=== PATIENT | male | born 1930 | race Caucasian/White ===

== ENCOUNTER 2017-04-22 10:58 | Day surgery (SDC) | payer MEDICARE, BC ==
[2017-04-22 11:51] LABS: ADD MAN DIFF? NO
[2017-04-22 11:55] LABS: WHITE BLOOD COUNT 12.6 10^3/ul (4.8-10.8)
[2017-04-22 11:55] LABS: BASOPHILS % 0.2 % (0.0-2.0); EOSINOPHILS # 0.3 10^3/ul (0.0-0.5); EOSINOPHILS % 2.5 % (0.0-7.0); HEMATOCRIT 35.1 % (42.0-52.0); HEMOGLOBIN 11.1 g/dl (14.0-18.0); LYMPHOCYTES # 1.1 10^3/ul (0.8-2.9); LYMPHOCYTES % 8.7 % (15.0-51.0); MEAN CORPUSCULAR HEMOGLOBIN 30.8 pg (29.0-33.0); MEAN CORPUSCULAR HGB CONC 31.6 g/dl (32.0-37.0); MEAN CORPUSCULAR VOLUME 97.5 fl (82.0-101.0); MEAN PLATELET VOLUME 12.1 fl (7.4-10.4); MONOCYTE # 0.9 10^3/ul (0.3-0.9); MONOCYTES % 7.3 % (0.0-11.0); NEUTROPHILS % 79.6 % (39.0-77.0); PLATELET COUNT 316 10^3/UL (140-415); RED CELL DISTRIBUTION WIDTH 17.2 % (11.5-14.5)
[2017-04-22 12:00] LABS: HOLD TRANSMISSIONS 1
[2017-04-22 12:12] LABS: ALANINE AMINOTRANSFERASE 43 IU/L (13-69); ALBUMIN 4.7 g/dl (3.3-4.9); ALBUMIN/GLOBULIN RATIO 1.56; ALKALINE PHOSPHATASE 57 IU/L (42-121); ANION GAP 16 (8-16); ASPARTATE AMINO TRANSFERASE 32 IU/L (15-46); BILIRUBIN,INDIRECT 0.3 mg/dl (0-1.1); BILIRUBIN,TOTAL 0.3 mg/dl (0.2-1.3); CARBON DIOXIDE 28 mmol/L (21-31); CHLORIDE 100 mmol/L (97-110); GLUCOSE 133 mg/dl (70-220); TOTAL PROTEIN 7.7 g/dl (6.1-8.1)
[2017-04-22 12:15] LABS: BLOOD UREA NITROGEN 40 mg/dl (7-20); CALCIUM 10.3 mg/dl (8.4-10.2); CREATININE 4.18 mg/dl (0.61-1.24); POTASSIUM 5.1 mmol/L (3.5-5.1); SODIUM 139 mmol/L (135-144)
[2017-04-22 12:16] LABS: INR 1.09; PARTIAL THROMBOPLASTIN TIME 33.7 Sec (25.0-35.0); PROTIME 14.3 Sec (11.9-14.9); PT RATIO 1.1
[2017-04-22] MEDS ORDERED: LIDOCAINE 1% (MPF) 30 ML INJ (14:41)
[2017-04-22] MEDS ORDERED: GELATIN SIZE 100 SPONGE (14:53)
[2017-04-22] MEDS ORDERED: HEPARIN 1000 UNITS/ML 10 ML INJ (14:53)
[2017-04-22] MEDS ORDERED: THROMBIN 5000 UNIT VIAL (14:53)
[2017-04-22] MEDS ORDERED: ONDANSETRON 4 MG INJ IV (15:00)
[2017-04-22] MEDS ORDERED: METOCLOPRAMIDE 10 MG INJ IV (15:00)
[2017-04-22] MEDS ORDERED: FENTAnyl 50 MCG/ML VIAL IV (15:00)
[2017-04-22] MEDS ORDERED: MEPERIDINE 25 MG INJ IV (15:00)
[2017-04-22] MEDS ORDERED: hydrALAzine 20 MG INJ IV (15:00)
[2017-04-22] MEDS ORDERED: HYDROmorphONE (0.2 MG/ML) 10ML SYG IV (15:00)
[2017-04-22] MEDS ORDERED: LABETALOL HCL 20MG INJ IV (15:00)
[2017-04-22] MEDS ORDERED: DIPHENHYDRAMINE 50 MG INJ IV (15:00)
[2017-04-22] MEDS ORDERED: FENTAnyl 50 MCG/ML VIAL (15:15)
[2017-04-22] MEDS ORDERED: ROPIVACAINE 0.5 % 30 ML VIAL (15:15)
[2017-04-22] MEDS ORDERED: MIDAZOLAM 1 MG/ML 2 ML INJ (15:17)
[2017-04-22] MEDS ORDERED: LIDOCAINE 2%/EPI 30 ML INJ (15:50)
[2017-04-22] MEDS ORDERED: CEFAZOLIN 1 GM INJ (15:50)
[2017-04-22] MEDS: LIDOCAINE 1% (MPF) 30 ML INJ (15:51)
[2017-04-22] MEDS: HEPARIN 1000 UNITS/ML 10 ML INJ (16:02)
[2017-04-22] MEDS: GELATIN SIZE 100 SPONGE (16:04)
[2017-04-22] MEDS: THROMBIN 5000 UNIT VIAL (16:05)
== END 2017-04-22 18:06 | disposition home or self-care (01) ==
LOC: SDS 10:58
DX: Z45.2 Encounter for adjustment and management of vascular access device (principal); N18.6 End stage renal disease; E11.22 Type 2 diabetes mellitus with diabetic chronic kidney disease; I12.0 Hypertensive chronic kidney disease with stage 5 chronic kidney disease or end stage renal disease
CPT/HCPCS: 36830; 80053; 82962; 85025; 85610; 85730

== ENCOUNTER → 2018-04-11 | Outpatient (CLI) | payer MEDICARE, BC | END | disposition home or self-care (01) | LOC: PUL 12:17 | DX: R06.02 Shortness of breath (principal); I50.9 Heart failure, unspecified; E11.8 Type 2 diabetes mellitus with unspecified complications | CPT/HCPCS: 94060; 94664; 94726; 94729 ==

== ENCOUNTER 2018-12-09 12:40 | Inpatient (IN) | payer MEDICARE, BC ==
[2018-12-09] MEDS: METOPROLOL (XL) 50 MG TAB PO ×2 (01:12→18:06)
[2018-12-09] MEDS ORDERED: VANCOMYCIN IV PER PHARMACY XX ×2 (13:00)
[2018-12-09] MEDS ORDERED: ZOLPIDEM 5 MG TAB PO (13:30)
[2018-12-09] MEDS ORDERED: DIAZEPAM 5 MG TAB PO (13:30)
[2018-12-09] MEDS ORDERED: ACETAMINOPHEN 325 MG TAB PO (13:30)
[2018-12-09] MEDS ORDERED: ONDANSETRON 4 MG INJ IV (13:30)
[2018-12-09] MEDS: HYDROCODONE/APAP (5/325) TAB PO (13:50)
[2018-12-09] MEDS ORDERED: NITROGLYCERIN (SL) 0.4 MG TAB SL (14:00)
[2018-12-09] MEDS ORDERED: GLUCOSE GEL 15 GRAM TUBE BUCCAL (14:00)
[2018-12-09] MEDS ORDERED: DEXTROSE 50% 50 ML SYRINGE IV ×2 (14:00)
[2018-12-09] MEDS ORDERED: GLUCOSE GEL 15 GRAM TUBE PO ×2 (14:00)
[2018-12-09] MEDS ORDERED: GLUCAGON 1 MG INJ IM (14:00)
[2018-12-09] MEDS: LIDOCAINE 1% (MDV) 20 ML INJ (16:34)
[2018-12-09] MEDS: INSULIN ASPART [NOVOLOG] 3 ML PEN SC (18:04)
[2018-12-09] MEDS: SEVELAMER CARBONATE 800 MG TABLET PO (18:09)
[2018-12-09 18:28] LABS: FLUID GLUCOSE 179 mg/dl
[2018-12-09 18:29] LABS: FLUID TYPE SYNOVIAL FLUID
[2018-12-09] MEDS ORDERED: INSULIN GLARGINE [LANTus] (100 UNITS/ML) SYG SC (18:30)
[2018-12-09 18:39] LABS: ABNORMAL IP MESSAGE 1; HEMATOCRIT 31.3 % (42.0-52.0); HEMOGLOBIN 9.6 g/dl (14.0-18.0); MEAN CORPUSCULAR HEMOGLOBIN 30.2 pg (29.0-33.0); MEAN CORPUSCULAR HGB CONC 30.7 g/dl (32.0-37.0); MEAN CORPUSCULAR VOLUME 98.4 fl (82.0-101.0); MEAN PLATELET VOLUME 12.3 fl (7.4-10.4); PLATELET COUNT 336 10^3/UL (140-415); POSITIVE DIFF @See below; RED BLOOD COUNT 3.18 10^6/ul (4.70-6.10)
[2018-12-09] MEDS: EPOETIN ALFA-EPBX (ESRD) 10,000 UNIT/ML VIAL SC (18:50)
[2018-12-09 18:58] LABS: ADD MAN DIFF? YES
[2018-12-09 18:59] LABS: IRON 17 ug/dl (35-150)
[2018-12-09 19:01] LABS: ALANINE AMINOTRANSFERASE 51 IU/L (13-69); ALBUMIN 3.8 g/dl (3.3-4.9); ALBUMIN/GLOBULIN RATIO 1.15; ALKALINE PHOSPHATASE 151 IU/L (42-121); ANION GAP 15 (5-13); ASPARTATE AMINO TRANSFERASE 34 IU/L (15-46); BILIRUBIN,INDIRECT 0.4 mg/dl (0-1.1); BILIRUBIN,TOTAL 0.4 mg/dl (0.2-1.3); BLOOD UREA NITROGEN 58 mg/dl (7-20); CALCIUM 9.3 mg/dl (8.4-10.2); CARBON DIOXIDE 27 mmol/L (21-31); CHLORIDE 89 mmol/L (97-110); CREATININE 6.49 mg/dl (0.61-1.24); GLUCOSE 199 mg/dl (70-220); PHOSPHORUS 2.5 mg/dl (2.5-4.9); POTASSIUM 4.3 mmol/L (3.5-5.1); SODIUM 131 mmol/L (135-144); TOTAL PROTEIN 7.1 g/dl (6.1-8.1); URIC ACID 5.6 mg/dl (3.1-7.9)
[2018-12-09 19:09] LABS: % IRON SATURATION 11 % SAT (22-52); TOTAL IRON BINDING CAPACITY 157 ug/dl (241-421)
[2018-12-09 19:31] LABS: HEPATITIS B SURFACE ANTIGEN NEGATIVE (NEGATIVE)
[2018-12-09 19:42] LABS: ANISOCYTOSIS 1+ (0-0); BAND NEUTROPHILS #M 1.7 10^3/ul (0.0-0.6); BAND NEUTROPHILS % (M) 16 % (0-4); BASOPHIL #M 0.4 10^3/ul (0.0-0.0); BASOPHILS % (M) 4 % (0-2); GIANT THROMBO% (M) 1 % (0-0); LYMPHOCYTES #M 0.4 10^3/ul (0.8-2.9); LYMPHOCYTES % (M) 4 % (15-51); MONOCYTE #M 1.7 10^3/ul (0.3-0.9); MONOCYTES % (M) 16 % (0-11); PLATELET ESTIMATE NORMAL; POIKILOCYTOSIS 1+ (0-0); POLYCHROMASIA 2+ (0-0); PROMYELOCYTES #M 0.1 10^3/ul (0-0); PROMYELOCYTES % (M) 1 % (0-0); REACTIVE LYMPHOCYTES #M 0.1 10^3/ul (0.0-0.0); REACTIVE LYMPHOCYTES% (M) 1 % (0-0); SEG NEUT #M 6.6 10^3/ul (1.6-7.5); SEGMENTED NEUTROPHILS (M) % 58 % (39-77); SMUDGE%M 24 % (0-0)
[2018-12-09 19:49] LABS: HEPATITIS B SURFACE ANTIBODY NEGATIVE (NEGATIVE)
[2018-12-09 19:58] LABS: FLD CLARITY HAZY; FLD COLOR YELLOW; FLD MN% 15.9 %; FLD RBC < 2000 /uL
[2018-12-09 19:59] LABS: FLD PMN% 84.1 %
[2018-12-09 20:01] LABS: FLD WBC 352 /cmm
[2018-12-09] MEDS: ATORVASTATIN 20 MG TAB PO (20:52)
[2018-12-09] MEDS: INSULIN GLARGINE [LANTus] (100 UNITS/ML) SYG SC (20:57)
[2018-12-09] MEDS: NACL 0.9% 3 ML SYG IV (20:58)
[2018-12-09 21:53] LABS: FOLATE > 20.0 ng/ml (2.8-20.0)
[2018-12-10] MEDS: VANCOMYCIN 1 GM 250 ML IVPB (01:17)
[2018-12-10] MEDS: ACCU-CHEK XX (02:00)
[2018-12-10 05:18] LABS: WHITE BLOOD COUNT 13.7 10^3/ul (4.8-10.8)
[2018-12-10 05:18] LABS: ABNORMAL IP MESSAGE 1; HEMATOCRIT 31.6 % (42.0-52.0); HEMOGLOBIN 9.7 g/dl (14.0-18.0); MEAN CORPUSCULAR HEMOGLOBIN 30.7 pg (29.0-33.0); MEAN CORPUSCULAR HGB CONC 30.7 g/dl (32.0-37.0); MEAN PLATELET VOLUME 12.4 fl (7.4-10.4); NUCLEATED RED BLOOD CELLS% 0.2 /100WBC (0.0-0.0); PLATELET COUNT 322 10^3/UL (140-415); POSITIVE DIFF @See below; RED BLOOD COUNT 3.16 10^6/ul (4.70-6.10); RED CELL DISTRIBUTION WIDTH 17.9 % (11.5-14.5)
[2018-12-10 05:23] LABS: ADD MAN DIFF? YES
[2018-12-10 05:30] LABS: HEMOGLOBIN A1C 6.6 % (0-5.9)
[2018-12-10 06:03] LABS: ANION GAP 14 (5-13); BLOOD UREA NITROGEN 32 mg/dl (7-20); CALCIUM 8.5 mg/dl (8.4-10.2); CARBON DIOXIDE 30 mmol/L (21-31); CHLORIDE 92 mmol/L (97-110); CREATININE 3.98 mg/dl (0.61-1.24); GLUCOSE 155 mg/dl (70-220); SODIUM 136 mmol/L (135-144)
[2018-12-10 06:03] LABS: PHOSPHORUS 2.7 mg/dl (2.5-4.9)
[2018-12-10] MEDS: LEVOTHYROXINE 75 MCG TAB PO (06:56)
[2018-12-10 08:00] LABS: ANISOCYTOSIS 1+ (0-0); BAND NEUTROPHILS #M 3.1 10^3/ul (0.0-0.6); BAND NEUTROPHILS % (M) 23 % (0-4); GIANT THROMBO% (M) 2 % (0-0); LYMPHOCYTES #M 0.5 10^3/ul (0.8-2.9); LYMPHOCYTES % (M) 4 % (15-51); METAMYELOCYTES #M 0.1 10^3/ul (0.0-0.0); METAMYELOCYTES %M 1 % (0-0); MONOCYTE #M 2.4 10^3/ul (0.3-0.9); MONOCYTES % (M) 18 % (0-11); MYELOCYTES #M 0.2 10^3/ul (0.0-0.0); MYELOCYTES % (M) 2 % (0-0); PLATELET ESTIMATE NORMAL; POIKILOCYTOSIS 1+ (0-0); POLYCHROMASIA 1+ (0-0); SEG NEUT #M 7.5 10^3/ul (1.6-7.5); SEGMENTED NEUTROPHILS (M) % 52 % (39-77); SMUDGE%M 25 % (0-0)
[2018-12-10 08:35] LABS: ERYTHROCYTE SEDIMENTATION RATE 107 mm/Hr (0-20)
[2018-12-10] MEDS: SEVELAMER CARBONATE 800 MG TABLET PO ×3 (08:39→18:15)
[2018-12-10] MEDS: LINAGLIPTIN 5 MG TABLET PO (08:40)
[2018-12-10] MEDS: CLOPIDOGREL 75 MG TAB PO (08:40)
[2018-12-10] MEDS: FOLIC ACID 1 MG TAB PO (08:40)
[2018-12-10] MEDS: METOPROLOL (XL) 50 MG TAB PO ×2 (08:40→21:00)
[2018-12-10] MEDS: CYANOCOBALAMIN 500 MCG TAB PO (08:40)
[2018-12-10] MEDS: CHOLECALCIFEROL 2,000 UNIT CAP PO (08:41)
[2018-12-10] MEDS: AMLODIPINE 2.5 MG TAB PO (08:41)
[2018-12-10] MEDS: MULTIVIT/CA CARB/B CMPLX/FA TAB PO (08:41)
[2018-12-10] MEDS: ISOSORBIDE MONONITRATE(SR)30 MG TAB PO (08:41)
[2018-12-10] MEDS: COLCHICINE 0.6 MG CAP PO (08:42)
[2018-12-10] MEDS: AMIODARONE 200 MG TAB PO (08:43)
[2018-12-10] MEDS: ASPIRIN 81 MG TAB PO (08:44)
[2018-12-10] MEDS: PYRIDOXINE 50 MG TAB PO (08:44)
[2018-12-10] MEDS: INSULIN ASPART [NOVOLOG] 3 ML PEN SC ×3 (08:45→18:21)
[2018-12-10] MEDS ORDERED: ALLOPURINOL 100 MG TAB PO (09:00)
[2018-12-10 11:34] LABS: PROCALCITONIN 1.87 ng/mL (0.00-0.10)
[2018-12-10] MEDS: predniSONE 20 MG TAB PO (18:15)
[2018-12-10] MEDS ORDERED: SPECIAL NON-STANDARD MEDICATION PO (21:00)
[2018-12-10] MEDS: ATORVASTATIN 20 MG TAB PO (21:44)
[2018-12-10] MEDS: JAKAFI 5 MG PO (21:44)
[2018-12-10] MEDS: INSULIN GLARGINE [LANTus] (100 UNITS/ML) SYG SC (21:50)
[2018-12-11] MEDS: ACCU-CHEK XX (02:00)
[2018-12-11 05:34] LABS: WHITE BLOOD COUNT 9.7 10^3/ul (4.8-10.8)
[2018-12-11 05:34] LABS: ABNORMAL IP MESSAGE 1; HEMATOCRIT 26.8 % (42.0-52.0); HEMOGLOBIN 8.2 g/dl (14.0-18.0); MEAN CORPUSCULAR HEMOGLOBIN 29.7 pg (29.0-33.0); MEAN CORPUSCULAR HGB CONC 30.6 g/dl (32.0-37.0); MEAN CORPUSCULAR VOLUME 97.1 fl (82.0-101.0); MEAN PLATELET VOLUME 12.6 fl (7.4-10.4); NUCLEATED RED BLOOD CELLS% 0.2 /100WBC (0.0-0.0); PLATELET COUNT 276 10^3/UL (140-415); POSITIVE DIFF @See below; RED BLOOD COUNT 2.76 10^6/ul (4.70-6.10); RED CELL DISTRIBUTION WIDTH 17.8 % (11.5-14.5)
[2018-12-11 05:51] LABS: ADD MAN DIFF? YES
[2018-12-11] MEDS: LEVOTHYROXINE 75 MCG TAB PO (06:07)
[2018-12-11 06:10] LABS: ALANINE AMINOTRANSFERASE 40 IU/L (13-69); ALKALINE PHOSPHATASE 104 IU/L (42-121); ANION GAP 11 (5-13); ASPARTATE AMINO TRANSFERASE 28 IU/L (15-46); BILIRUBIN,INDIRECT 0.5 mg/dl (0-1.1); BILIRUBIN,TOTAL 0.5 mg/dl (0.2-1.3); BLOOD UREA NITROGEN 59 mg/dl (7-20); CALCIUM 8.1 mg/dl (8.4-10.2); CARBON DIOXIDE 30 mmol/L (21-31); CHLORIDE 88 mmol/L (97-110); CREATININE 5.53 mg/dl (0.61-1.24); GLUCOSE 236 mg/dl (70-220); PHOSPHORUS 3.8 mg/dl (2.5-4.9); POTASSIUM 4.4 mmol/L (3.5-5.1); SODIUM 129 mmol/L (135-144)
[2018-12-11] MEDS: INSULIN ASPART [NOVOLOG] 3 ML PEN SC ×3 (07:20→17:25)
[2018-12-11] MEDS: CLOPIDOGREL 75 MG TAB PO (08:28)
[2018-12-11] MEDS: CHOLECALCIFEROL 2,000 UNIT CAP PO (08:28)
[2018-12-11] MEDS: SEVELAMER CARBONATE 800 MG TABLET PO ×3 (08:28→17:44)
[2018-12-11] MEDS: COLCHICINE 0.6 MG CAP PO (08:28)
[2018-12-11] MEDS: ASPIRIN 81 MG TAB PO (08:28)
[2018-12-11] MEDS: MULTIVIT/CA CARB/B CMPLX/FA TAB PO (08:28)
[2018-12-11] MEDS: LINAGLIPTIN 5 MG TABLET PO (08:29)
[2018-12-11] MEDS: APIXABAN 5 MG TABLET PO ×2 (08:29→22:50)
[2018-12-11] MEDS: FOLIC ACID 1 MG TAB PO (08:29)
[2018-12-11] MEDS: CYANOCOBALAMIN 500 MCG TAB PO (08:29)
[2018-12-11] MEDS: PYRIDOXINE 50 MG TAB PO (08:29)
[2018-12-11] MEDS: predniSONE 20 MG TAB PO (08:29)
[2018-12-11] MEDS: AMIODARONE 200 MG TAB PO (08:30)
[2018-12-11] MEDS: ISOSORBIDE MONONITRATE(SR)30 MG TAB PO (08:30)
[2018-12-11] MEDS: METOPROLOL (XL) 50 MG TAB PO ×2 (08:31→22:50)
[2018-12-11] MEDS: HYDROCODONE/APAP (5/325) TAB PO (08:38)
[2018-12-11 09:42] LABS: ANISOCYTOSIS 2+ (0-0); BAND NEUTROPHILS % (M) 31 % (0-4); GIANT THROMBO% (M) 4 % (0-0); LYMPHOCYTES #M 0.5 10^3/ul (0.8-2.9); LYMPHOCYTES % (M) 6 % (15-51); METAMYELOCYTES %M 1 % (0-0); MONOCYTE #M 0.7 10^3/ul (0.3-0.9); MONOCYTES % (M) 8 % (0-11); MYELOCYTES #M 0.1 10^3/ul (0.0-0.0); MYELOCYTES % (M) 2 % (0-0); PLATELET ESTIMATE NORMAL; POIKILOCYTOSIS 2+ (0-0); POLYCHROMASIA 3+ (0-0); REACTIVE LYMPHOCYTES% (M) 1 % (0-0); SEG NEUT #M 5.2 10^3/ul (1.6-7.5); SEGMENTED NEUTROPHILS (M) % 51 % (39-77); SMUDGE%M 5 % (0-0)
[2018-12-11] MEDS: ATORVASTATIN 20 MG TAB PO (22:50)
[2018-12-11] MEDS: JAKAFI 5 MG PO (22:50)
[2018-12-11] MEDS: INSULIN GLARGINE [LANTus] (100 UNITS/ML) SYG SC (22:52)
[2018-12-12] MEDS: ACCU-CHEK XX (00:52)
[2018-12-12 05:03] LABS: ABNORMAL IP MESSAGE 1; HEMOGLOBIN 8.8 g/dl (14.0-18.0); MEAN CORPUSCULAR HEMOGLOBIN 30.4 pg (29.0-33.0); MEAN CORPUSCULAR HGB CONC 31.4 g/dl (32.0-37.0); MEAN CORPUSCULAR VOLUME 96.9 fl (82.0-101.0); MEAN PLATELET VOLUME 12.6 fl (7.4-10.4); PLATELET COUNT 298 10^3/UL (140-415); POSITIVE DIFF @See below; RED BLOOD COUNT 2.89 10^6/ul (4.70-6.10); RED CELL DISTRIBUTION WIDTH 17.8 % (11.5-14.5)
[2018-12-12 05:03] LABS: WHITE BLOOD COUNT 13.8 10^3/ul (4.8-10.8)
[2018-12-12 05:23] LABS: ADD MAN DIFF? YES
[2018-12-12 05:26] LABS: ALANINE AMINOTRANSFERASE 84 IU/L (13-69); ALBUMIN/GLOBULIN RATIO 0.88; ALKALINE PHOSPHATASE 153 IU/L (42-121); ANION GAP 10 (5-13); ASPARTATE AMINO TRANSFERASE 62 IU/L (15-46); BILIRUBIN,INDIRECT 0.4 mg/dl (0-1.1); BILIRUBIN,TOTAL 0.4 mg/dl (0.2-1.3); BLOOD UREA NITROGEN 43 mg/dl (7-20); CARBON DIOXIDE 33 mmol/L (21-31); CHLORIDE 89 mmol/L (97-110); GLUCOSE 207 mg/dl (70-220); POTASSIUM 4.1 mmol/L (3.5-5.1); SODIUM 132 mmol/L (135-144); TOTAL PROTEIN 6.4 g/dl (6.1-8.1)
[2018-12-12 05:29] LABS: VANCOMYCIN,RANDOM < 5.0 ug/ml
[2018-12-12] MEDS: LEVOTHYROXINE 75 MCG TAB PO (06:29)
[2018-12-12 07:56] LABS: ANISOCYTOSIS 1+ (0-0); BAND NEUTROPHILS #M 1.7 10^3/ul (0.0-0.6); BAND NEUTROPHILS % (M) 13 % (0-4); BURR CELLS 1+ (0-0); GIANT THROMBO% (M) 2 % (0-0); LYMPHOCYTES #M 0.4 10^3/ul (0.8-2.9); LYMPHOCYTES % (M) 3 % (15-51); METAMYELOCYTES #M 0.2 10^3/ul (0.0-0.0); METAMYELOCYTES %M 2 % (0-0); MONOCYTE #M 0.2 10^3/ul (0.3-0.9); MONOCYTES % (M) 2 % (0-11); MYELOCYTES #M 0.2 10^3/ul (0.0-0.0); MYELOCYTES % (M) 2 % (0-0); OVALOCYTES 1+ (0-0); PLATELET ESTIMATE NORMAL; POIKILOCYTOSIS 1+ (0-0); POLYCHROMASIA 1+ (0-0); PROMYELOCYTES #M 0.1 10^3/ul (0-0); PROMYELOCYTES % (M) 1 % (0-0); SEG NEUT #M 10.9 10^3/ul (1.6-7.5); SEGMENTED NEUTROPHILS (M) % 77 % (39-77); SMUDGE%M 1 % (0-0)
[2018-12-12] MEDS: SEVELAMER CARBONATE 800 MG TABLET PO ×3 (08:31→18:09)
[2018-12-12] MEDS: MULTIVIT/CA CARB/B CMPLX/FA TAB PO (08:31)
[2018-12-12] MEDS: CLOPIDOGREL 75 MG TAB PO (08:31)
[2018-12-12] MEDS: ASPIRIN 81 MG TAB PO (08:31)
[2018-12-12] MEDS: FOLIC ACID 1 MG TAB PO (08:32)
[2018-12-12] MEDS: CHOLECALCIFEROL 2,000 UNIT CAP PO (08:32)
[2018-12-12] MEDS: CYANOCOBALAMIN 500 MCG TAB PO (08:32)
[2018-12-12] MEDS: LINAGLIPTIN 5 MG TABLET PO (08:32)
[2018-12-12] MEDS: PYRIDOXINE 50 MG TAB PO (08:32)
[2018-12-12] MEDS: APIXABAN 5 MG TABLET PO (08:32)
[2018-12-12] MEDS: INSULIN ASPART [NOVOLOG] 3 ML PEN SC ×3 (08:33→18:09)
[2018-12-12] MEDS: METOPROLOL (XL) 50 MG TAB PO (09:00)
[2018-12-12] MEDS ORDERED: VANCOMYCIN 1.5 GM/NS 250 ML 250 ML IVPB (09:00)
[2018-12-12] MEDS: AMIODARONE 200 MG TAB PO (09:00)
[2018-12-12] MEDS: ISOSORBIDE MONONITRATE(SR)30 MG TAB PO (09:00)
[2018-12-12] MEDS: SOD FERRIC GLUC COMPLX 125 MG in SOD CHLORIDE 0.9% 100 ML IVPB (12:28)
[2018-12-12] MEDS: HYDROCODONE/APAP (5/325) TAB PO (14:40)
[2018-12-12 23:09] LABS: ADD UMIC YES; UR ASCORBIC ACID NEGATIVE (NEGATIVE); UR BACTERIA FEW /HPF (NONE SEEN); UR BILIRUBIN (Dip) NEGATIVE (NEGATIVE); UR BLOOD (Dip) 1+ mg/dL (NEGATIVE); UR CLARITY SLIGHTLY CLOUDY (CLEAR); UR COLOR AMBER (YELLOW); UR GLUCOSE (Dip) NEGATIVE (NEGATIVE); UR KETONES (Dip) NEGATIVE (NEGATIVE); UR LEUKOCYTE ESTERASE (Dip) NEGATIVE Leu/ul (NEGATIVE); UR NITRITE (Dip) NEGATIVE (NEGATIVE); UR RBC 2 /HPF (0-5); UR SPECIFIC GRAVITY (Dip) 1.017 (1.003-1.030); UR TOTAL PROTEIN (Dip) 1+ mg/dl (NEGATIVE); UR UROBILINOGEN (Dip) NEGATIVE (NEGATIVE); UR WBC 2 /HPF (0-5)
[2018-12-13] MEDS: CEFAZOLIN 2 GM/50 ML (PMX) 50 ML IVPB (00:40)
[2018-12-13] MEDS: ATORVASTATIN 20 MG TAB PO ×2 (00:41→20:34)
[2018-12-13] MEDS: JAKAFI 5 MG PO ×2 (00:41→20:35)
[2018-12-13] MEDS: EPOETIN ALFA-EPBX (ESRD) 10,000 UNIT/ML VIAL SC (00:47)
[2018-12-13] MEDS: METOPROLOL (XL) 50 MG TAB PO ×4 (00:49→20:35)
[2018-12-13] MEDS: ACCU-CHEK XX (00:51)
[2018-12-13] MEDS: INSULIN GLARGINE [LANTus] (100 UNITS/ML) SYG SC ×2 (00:51→20:37)
[2018-12-13 05:05] LABS: ADD MAN DIFF? NO
[2018-12-13 05:08] LABS: ABNORMAL IP MESSAGE 1; BASOPHIL # 0.1 10^3/ul (0.0-0.1); BASOPHILS % 0.9 % (0.0-2.0); EOSINOPHILS # 0.2 10^3/ul (0.0-0.5); HEMATOCRIT 27.6 % (42.0-52.0); HEMOGLOBIN 8.5 g/dl (14.0-18.0); LYMPHOCYTES # 0.4 10^3/ul (0.8-2.9); LYMPHOCYTES % 2.9 % (15.0-51.0); MEAN CORPUSCULAR HEMOGLOBIN 30.2 pg (29.0-33.0); MEAN CORPUSCULAR HGB CONC 30.8 g/dl (32.0-37.0); MEAN CORPUSCULAR VOLUME 98.2 fl (82.0-101.0); MEAN PLATELET VOLUME 12.3 fl (7.4-10.4); MONOCYTE # 1.2 10^3/ul (0.3-0.9); MONOCYTES % 7.9 % (0.0-11.0); NEUTROPHIL # 11.7 10^3/ul (1.6-7.5); NEUTROPHILS % 79.4 % (39.0-77.0); PLATELET COUNT 271 10^3/UL (140-415); POSITIVE DIFF @See below; RED BLOOD COUNT 2.81 10^6/ul (4.70-6.10); RED CELL DISTRIBUTION WIDTH 17.5 % (11.5-14.5)
[2018-12-13 05:08] LABS: WHITE BLOOD COUNT 14.7 10^3/ul (4.8-10.8)
[2018-12-13 05:40] LABS: ANION GAP 9 (5-13); BLOOD UREA NITROGEN 32 mg/dl (7-20); CALCIUM 7.8 mg/dl (8.4-10.2); CARBON DIOXIDE 33 mmol/L (21-31); CHLORIDE 92 mmol/L (97-110); CREATININE 2.53 mg/dl (0.61-1.24); GLUCOSE 145 mg/dl (70-220); PHOSPHORUS 2.3 mg/dl (2.5-4.9); POTASSIUM 3.9 mmol/L (3.5-5.1); SODIUM 134 mmol/L (135-144)
[2018-12-13] MEDS: LEVOTHYROXINE 75 MCG TAB PO (05:59)
[2018-12-13] MEDS: INSULIN ASPART [NOVOLOG] 3 ML PEN SC ×6 (08:35→17:59)
[2018-12-13] MEDS: CHOLECALCIFEROL 2,000 UNIT CAP PO (08:36)
[2018-12-13] MEDS: CYANOCOBALAMIN 500 MCG TAB PO (08:36)
[2018-12-13] MEDS: FOLIC ACID 1 MG TAB PO (08:36)
[2018-12-13] MEDS: AMIODARONE 200 MG TAB PO (08:38)
[2018-12-13] MEDS: ISOSORBIDE MONONITRATE(SR)30 MG TAB PO (08:39)
[2018-12-13] MEDS: MULTIVIT/CA CARB/B CMPLX/FA TAB PO (08:45)
[2018-12-13] MEDS: LINAGLIPTIN 5 MG TABLET PO (08:45)
[2018-12-13] MEDS: PYRIDOXINE 50 MG TAB PO (08:49)
[2018-12-13] MEDS: IOHEXOL 300MG/ML 150 ML BTL ×2 (09:37→20:45)
[2018-12-13 09:55] LABS: ANISOCYTOSIS 1+ (0-0); BAND NEUTROPHILS #M 1.9 10^3/ul (0.0-0.6); BAND NEUTROPHILS % (M) 13 % (0-4); BURR CELLS 1+ (0-0); ERYTHROBLAST% (NRBC) (M) 1 % (0-0); LYMPHOCYTES #M 1.7 10^3/ul (0.8-2.9); LYMPHOCYTES % (M) 12 % (15-51); METAMYELOCYTES #M 0.2 10^3/ul (0.0-0.0); METAMYELOCYTES %M 2 % (0-0); MONOCYTE #M 0.2 10^3/ul (0.3-0.9); MONOCYTES % (M) 2 % (0-11); MYELOCYTES #M 0.5 10^3/ul (0.0-0.0); MYELOCYTES % (M) 4 % (0-0); OVALOCYTES 1+ (0-0); PLATELET ESTIMATE NORMAL; POIKILOCYTOSIS 2+ (0-0); POLYCHROMASIA 2+ (0-0); REACTIVE LYMPHOCYTES #M 0.2 10^3/ul (0.0-0.0); REACTIVE LYMPHOCYTES% (M) 2 % (0-0); SEG NEUT #M 9.8 10^3/ul (1.6-7.5); SEGMENTED NEUTROPHILS (M) % 65 % (39-77)
[2018-12-13] MEDS: SOD FERRIC GLUC COMPLX 125 MG in SOD CHLORIDE 0.9% 100 ML IVPB (12:52)
[2018-12-13] MEDS: HYDROCODONE/APAP (5/325) TAB PO (14:36)
[2018-12-13] MEDS: SEVELAMER CARBONATE 800 MG TABLET PO (17:54)
[2018-12-13] MEDS: SOD CHLORIDE 0.9% 100 ML (20:45)
[2018-12-14] MEDS: ACCU-CHEK XX (01:38)
[2018-12-14 05:27] LABS: ADD MAN DIFF? NO
[2018-12-14 05:36] LABS: WHITE BLOOD COUNT 16.3 10^3/ul (4.8-10.8)
[2018-12-14 05:36] LABS: ABNORMAL IP MESSAGE 1; BASOPHILS % 0.1 % (0.0-2.0); EOSINOPHILS # 0.2 10^3/ul (0.0-0.5); HEMOGLOBIN 8.1 g/dl (14.0-18.0); LYMPHOCYTES # 0.8 10^3/ul (0.8-2.9); LYMPHOCYTES % 4.6 % (15.0-51.0); MEAN CORPUSCULAR HEMOGLOBIN 29.7 pg (29.0-33.0); MEAN CORPUSCULAR VOLUME 98.9 fl (82.0-101.0); MEAN PLATELET VOLUME 12.7 fl (7.4-10.4); MONOCYTES % 6.2 % (0.0-11.0); NEUTROPHIL # 12.2 10^3/ul (1.6-7.5); NEUTROPHILS % 74.5 % (39.0-77.0); PLATELET COUNT 300 10^3/UL (140-415); POSITIVE DIFF @See below; RED BLOOD COUNT 2.73 10^6/ul (4.70-6.10); RED CELL DISTRIBUTION WIDTH 17.8 % (11.5-14.5)
[2018-12-14] MEDS: LEVOTHYROXINE 75 MCG TAB PO (06:21)
[2018-12-14 06:37] LABS: ANION GAP 9 (5-13); BLOOD UREA NITROGEN 53 mg/dl (7-20); CALCIUM 7.9 mg/dl (8.4-10.2); CARBON DIOXIDE 30 mmol/L (21-31); CHLORIDE 91 mmol/L (97-110); CREATININE 4.49 mg/dl (0.61-1.24); GLUCOSE 90 mg/dl (70-220); PHOSPHORUS 2.8 mg/dl (2.5-4.9); POTASSIUM 3.8 mmol/L (3.5-5.1); SODIUM 130 mmol/L (135-144)
[2018-12-14] MEDS: INSULIN ASPART [NOVOLOG] 3 ML PEN SC ×6 (07:20→18:06)
[2018-12-14 07:26] LABS: ANISOCYTOSIS 1+ (0-0); BAND NEUTROPHILS #M 1.6 10^3/ul (0.0-0.6); BAND NEUTROPHILS % (M) 10 % (0-4); BURR CELLS 1+ (0-0); EOSINOPHILS % (M) 1 % (0-7); GIANT THROMBO% (M) 2 % (0-0); HYPOCHROMASIA 1+ (0-0); LYMPHOCYTES #M 0.6 10^3/ul (0.8-2.9); LYMPHOCYTES % (M) 4 % (15-51); METAMYELOCYTES #M 0.4 10^3/ul (0.0-0.0); METAMYELOCYTES %M 3 % (0-0); MONOCYTE #M 1.3 10^3/ul (0.3-0.9); MONOCYTES % (M) 8 % (0-11); MYELOCYTES #M 0.4 10^3/ul (0.0-0.0); MYELOCYTES % (M) 3 % (0-0); OVALOCYTES 1+ (0-0); PLATELET ESTIMATE NORMAL; POIKILOCYTOSIS 1+ (0-0); POLYCHROMASIA 2+ (0-0); SEG NEUT #M 11.8 10^3/ul (1.6-7.5); SEGMENTED NEUTROPHILS (M) % 71 % (39-77); SMUDGE%M 1 % (0-0); TOXIC GRANULATION 2+ (0-0)
[2018-12-14] MEDS: ISOSORBIDE MONONITRATE(SR)30 MG TAB PO (09:00)
[2018-12-14] MEDS: METOPROLOL (XL) 50 MG TAB PO ×2 (09:00→20:52)
[2018-12-14] MEDS: MULTIVIT/CA CARB/B CMPLX/FA TAB PO (09:25)
[2018-12-14] MEDS: FOLIC ACID 1 MG TAB PO (09:26)
[2018-12-14] MEDS: CYANOCOBALAMIN 500 MCG TAB PO (09:26)
[2018-12-14] MEDS: PYRIDOXINE 50 MG TAB PO (09:26)
[2018-12-14] MEDS: CHOLECALCIFEROL 2,000 UNIT CAP PO (09:26)
[2018-12-14] MEDS: AMIODARONE 200 MG TAB PO (09:27)
[2018-12-14] MEDS: LINAGLIPTIN 5 MG TABLET PO (09:27)
[2018-12-14] MEDS: TOBRAMYCIN 0.3% 5 ML OPH LEFT EYE ×4 (12:03→20:52)
[2018-12-14] MEDS: SOD FERRIC GLUC COMPLX 125 MG in SOD CHLORIDE 0.9% 100 ML IVPB (14:18)
[2018-12-14] MEDS: HYDROCODONE/APAP (5/325) TAB PO (15:41)
[2018-12-14] MEDS: CEFAZOLIN 2 GM/50 ML (PMX) 50 ML IVPB (18:09)
[2018-12-14] MEDS: SEVELAMER CARBONATE 800 MG TABLET PO (18:09)
[2018-12-14] MEDS: EPOETIN ALFA-EPBX (ESRD) 10,000 UNIT/ML VIAL SC (19:40)
[2018-12-14] MEDS: ATORVASTATIN 20 MG TAB PO (20:52)
[2018-12-14] MEDS: JAKAFI 5 MG PO (20:56)
[2018-12-14] MEDS: INSULIN GLARGINE [LANTus] (100 UNITS/ML) SYG SC (20:57)
[2018-12-15] MEDS: ACCU-CHEK XX (02:00)
[2018-12-15] MEDS: HYDROCODONE/APAP (5/325) TAB PO (03:16)
[2018-12-15 05:07] LABS: ADD MAN DIFF? NO
[2018-12-15 05:14] LABS: WHITE BLOOD COUNT 16.7 10^3/ul (4.8-10.8)
[2018-12-15 05:14] LABS: ABNORMAL IP MESSAGE 1; BASOPHILS % 0.2 % (0.0-2.0); EOSINOPHILS # 0.1 10^3/ul (0.0-0.5); EOSINOPHILS % 0.8 % (0.0-7.0); HEMATOCRIT 25.4 % (42.0-52.0); HEMOGLOBIN 7.8 g/dl (14.0-18.0); LYMPHOCYTES # 0.7 10^3/ul (0.8-2.9); LYMPHOCYTES % 4.2 % (15.0-51.0); MEAN CORPUSCULAR HEMOGLOBIN 30.7 pg (29.0-33.0); MEAN CORPUSCULAR HGB CONC 30.7 g/dl (32.0-37.0); MEAN PLATELET VOLUME 12.5 fl (7.4-10.4); MONOCYTE # 1.2 10^3/ul (0.3-0.9); NEUTROPHIL # 11.2 10^3/ul (1.6-7.5); NEUTROPHILS % 67.2 % (39.0-77.0); PLATELET COUNT 273 10^3/UL (140-415); POSITIVE DIFF @See below; RED BLOOD COUNT 2.54 10^6/ul (4.70-6.10); RED CELL DISTRIBUTION WIDTH 17.9 % (11.5-14.5)
[2018-12-15 05:30] LABS: ANION GAP 9 (5-13); BLOOD UREA NITROGEN 39 mg/dl (7-20); CARBON DIOXIDE 30 mmol/L (21-31); CHLORIDE 93 mmol/L (97-110); CREATININE 3.97 mg/dl (0.61-1.24); GLUCOSE 134 mg/dl (70-220); POTASSIUM 3.8 mmol/L (3.5-5.1); SODIUM 132 mmol/L (135-144)
[2018-12-15] MEDS: LEVOTHYROXINE 75 MCG TAB PO (06:18)
[2018-12-15 07:18] LABS: ANISOCYTOSIS 1+ (0-0); BAND NEUTROPHILS % (M) 12 % (0-4); GIANT THROMBO% (M) 2 % (0-0); LYMPHOCYTES #M 0.5 10^3/ul (0.8-2.9); LYMPHOCYTES % (M) 3 % (15-51); METAMYELOCYTES #M 0.6 10^3/ul (0.0-0.0); METAMYELOCYTES %M 4 % (0-0); MONOCYTE #M 1.1 10^3/ul (0.3-0.9); MONOCYTES % (M) 7 % (0-11); MYELOCYTES #M 0.8 10^3/ul (0.0-0.0); MYELOCYTES % (M) 5 % (0-0); PLATELET ESTIMATE NORMAL; POIKILOCYTOSIS 1+ (0-0); POLYCHROMASIA 1+ (0-0); PROMYELOCYTES #M 0.6 10^3/ul (0-0); PROMYELOCYTES % (M) 4 % (0-0); REACTIVE LYMPHOCYTES #M 0.6 10^3/ul (0.0-0.0); REACTIVE LYMPHOCYTES% (M) 4 % (0-0); SEG NEUT #M 10.5 10^3/ul (1.6-7.5); SEGMENTED NEUTROPHILS (M) % 61 % (39-77); SMUDGE%M 4 % (0-0)
[2018-12-15] MEDS: INSULIN ASPART [NOVOLOG] 3 ML PEN SC ×6 (07:50→18:00)
[2018-12-15] MEDS: TOBRAMYCIN 0.3% 5 ML OPH LEFT EYE ×4 (09:00→20:59)
[2018-12-15] MEDS: MULTIVIT/CA CARB/B CMPLX/FA TAB PO (09:04)
[2018-12-15] MEDS: PYRIDOXINE 50 MG TAB PO (09:05)
[2018-12-15] MEDS: CYANOCOBALAMIN 500 MCG TAB PO (09:05)
[2018-12-15] MEDS: CHOLECALCIFEROL 2,000 UNIT CAP PO (09:05)
[2018-12-15] MEDS: METOPROLOL (XL) 50 MG TAB PO ×2 (09:05→20:59)
[2018-12-15] MEDS: LINAGLIPTIN 5 MG TABLET PO (09:05)
[2018-12-15] MEDS: FOLIC ACID 1 MG TAB PO (09:05)
[2018-12-15] MEDS: ISOSORBIDE MONONITRATE(SR)30 MG TAB PO (09:05)
[2018-12-15] MEDS: AMIODARONE 200 MG TAB PO (09:06)
[2018-12-15] MEDS: SOD FERRIC GLUC COMPLX 125 MG in SOD CHLORIDE 0.9% 100 ML IVPB (12:42)
[2018-12-15] MEDS: SEVELAMER CARBONATE 800 MG TABLET PO (17:57)
[2018-12-15] MEDS: ATORVASTATIN 20 MG TAB PO (20:59)
[2018-12-15] MEDS: JAKAFI 5 MG PO (21:01)
[2018-12-15] MEDS: INSULIN GLARGINE [LANTus] (100 UNITS/ML) SYG SC (21:02)
[2018-12-16] MEDS: ACCU-CHEK XX (02:00)
[2018-12-16 05:19] LABS: ADD MAN DIFF? NO
[2018-12-16 05:23] LABS: ABNORMAL IP MESSAGE 1; BASOPHILS % 0.2 % (0.0-2.0); EOSINOPHILS # 0.1 10^3/ul (0.0-0.5); EOSINOPHILS % 0.6 % (0.0-7.0); HEMOGLOBIN 7.6 g/dl (14.0-18.0); LYMPHOCYTES # 0.9 10^3/ul (0.8-2.9); LYMPHOCYTES % 4.4 % (15.0-51.0); MEAN CORPUSCULAR HEMOGLOBIN 30.3 pg (29.0-33.0); MEAN CORPUSCULAR HGB CONC 30.4 g/dl (32.0-37.0); MEAN CORPUSCULAR VOLUME 99.6 fl (82.0-101.0); MEAN PLATELET VOLUME 12.4 fl (7.4-10.4); MONOCYTE # 1.3 10^3/ul (0.3-0.9); MONOCYTES % 6.6 % (0.0-11.0); NEUTROPHIL # 11.8 10^3/ul (1.6-7.5); NEUTROPHILS % 61.7 % (39.0-77.0); NUCLEATED RED BLOOD CELLS% 0.1 /100WBC (0.0-0.0); PLATELET COUNT 287 10^3/UL (140-415); POSITIVE DIFF @See below; RED BLOOD COUNT 2.51 10^6/ul (4.70-6.10); RED CELL DISTRIBUTION WIDTH 17.8 % (11.5-14.5)
[2018-12-16 05:23] LABS: WHITE BLOOD COUNT 19.2 10^3/ul (4.8-10.8)
[2018-12-16 05:54] LABS: ANION GAP 11 (5-13); BLOOD UREA NITROGEN 54 mg/dl (7-20); CARBON DIOXIDE 27 mmol/L (21-31); CHLORIDE 90 mmol/L (97-110); GLUCOSE 132 mg/dl (70-220); PHOSPHORUS 3.8 mg/dl (2.5-4.9); POTASSIUM 4.1 mmol/L (3.5-5.1); SODIUM 128 mmol/L (135-144)
[2018-12-16] MEDS: LEVOTHYROXINE 75 MCG TAB PO (07:00)
[2018-12-16] MEDS: INSULIN ASPART [NOVOLOG] 3 ML PEN SC ×6 (07:20→18:08)
[2018-12-16 08:28] LABS: ANISOCYTOSIS 3+ (0-0); BAND NEUTROPHILS #M 2.6 10^3/ul (0.0-0.6); BAND NEUTROPHILS % (M) 14 % (0-4); BURR CELLS 1+ (0-0); EOSINOPHILS % (M) 1 % (0-7); LYMPHOCYTES #M 0.5 10^3/ul (0.8-2.9); LYMPHOCYTES % (M) 3 % (15-51); METAMYELOCYTES #M 1.5 10^3/ul (0.0-0.0); METAMYELOCYTES %M 8 % (0-0); MONOCYTE #M 0.9 10^3/ul (0.3-0.9); MONOCYTES % (M) 5 % (0-11); MYELOCYTES #M 0.9 10^3/ul (0.0-0.0); MYELOCYTES % (M) 5 % (0-0); OVALOCYTES 1+ (0-0); PLATELET ESTIMATE NORMAL; POIKILOCYTOSIS 3+ (0-0); POLYCHROMASIA 3+ (0-0); PROMYELOCYTES #M 0.1 10^3/ul (0-0); PROMYELOCYTES % (M) 1 % (0-0); SEG NEUT #M 12.6 10^3/ul (1.6-7.5); SEGMENTED NEUTROPHILS (M) % 63 % (39-77); SMUDGE%M 8 % (0-0); TOXIC GRANULATION 1+ (0-0)
[2018-12-16] MEDS: AMIODARONE 200 MG TAB PO (09:00)
[2018-12-16] MEDS: FOLIC ACID 1 MG TAB PO (09:00)
[2018-12-16] MEDS: METOPROLOL (XL) 50 MG TAB PO ×2 (09:00→20:37)
[2018-12-16] MEDS: CHOLECALCIFEROL 2,000 UNIT CAP PO (09:00)
[2018-12-16] MEDS: ISOSORBIDE MONONITRATE(SR)30 MG TAB PO (09:00)
[2018-12-16] MEDS: TOBRAMYCIN 0.3% 5 ML OPH LEFT EYE ×4 (09:00→20:36)
[2018-12-16] MEDS: MULTIVIT/CA CARB/B CMPLX/FA TAB PO (09:00)
[2018-12-16] MEDS: PYRIDOXINE 50 MG TAB PO (09:00)
[2018-12-16] MEDS: CYANOCOBALAMIN 500 MCG TAB PO (09:00)
[2018-12-16] MEDS: LINAGLIPTIN 5 MG TABLET PO (09:00)
[2018-12-16] MEDS: DEXTROSE 5% 1,000 ML IV (09:25)
[2018-12-16] MEDS: SOD FERRIC GLUC COMPLX 125 MG in SOD CHLORIDE 0.9% 100 ML IVPB (12:50)
[2018-12-16] MEDS: CEFAZOLIN 1 GM/50 ML (PMX) 50 ML IVPB (17:26)
[2018-12-16] MEDS: SEVELAMER CARBONATE 800 MG TABLET PO (17:26)
[2018-12-16] MEDS: CEFAZOLIN 2 GM/50 ML (PMX) 50 ML IVPB (17:38)
[2018-12-16] MEDS: EPOETIN ALFA-EPBX (ESRD) 10,000 UNIT/ML VIAL SC (17:38)
[2018-12-16] MEDS: ATORVASTATIN 20 MG TAB PO (20:37)
[2018-12-16] MEDS: JAKAFI 5 MG PO (20:39)
[2018-12-16] MEDS: INSULIN GLARGINE [LANTus] (100 UNITS/ML) SYG SC (20:39)
[2018-12-16] MEDS: HYDROCODONE/APAP (5/325) TAB PO (20:41)
[2018-12-17] MEDS: ACCU-CHEK XX (01:28)
[2018-12-17 04:59] LABS: ADD MAN DIFF? NO
[2018-12-17 05:14] LABS: WHITE BLOOD COUNT 20.9 10^3/ul (4.8-10.8)
[2018-12-17 05:14] LABS: ABNORMAL IP MESSAGE 1; BASOPHIL # 0.2 10^3/ul (0.0-0.1); BASOPHILS % 0.8 % (0.0-2.0); EOSINOPHILS # 0.1 10^3/ul (0.0-0.5); EOSINOPHILS % 0.6 % (0.0-7.0); HEMATOCRIT 29.6 % (42.0-52.0); HEMOGLOBIN 8.8 g/dl (14.0-18.0); LYMPHOCYTES # 0.7 10^3/ul (0.8-2.9); LYMPHOCYTES % 3.4 % (15.0-51.0); MEAN CORPUSCULAR HGB CONC 29.7 g/dl (32.0-37.0); MEAN PLATELET VOLUME 12.4 fl (7.4-10.4); MONOCYTE # 1.5 10^3/ul (0.3-0.9); MONOCYTES % 7.1 % (0.0-11.0); NEUTROPHIL # 14.1 10^3/ul (1.6-7.5); NEUTROPHILS % 67.8 % (39.0-77.0); NUCLEATED RED BLOOD CELLS% 0.1 /100WBC (0.0-0.0); PLATELET COUNT 315 10^3/UL (140-415); POSITIVE DIFF @See below; RED BLOOD COUNT 2.93 10^6/ul (4.70-6.10)
[2018-12-17 05:34] LABS: ANION GAP 10 (5-13); BLOOD UREA NITROGEN 36 mg/dl (7-20); CALCIUM 8.3 mg/dl (8.4-10.2); CARBON DIOXIDE 30 mmol/L (21-31); CHLORIDE 94 mmol/L (97-110); GLUCOSE 87 mg/dl (70-220); POTASSIUM 4.3 mmol/L (3.5-5.1); SODIUM 134 mmol/L (135-144)
[2018-12-17] MEDS: LEVOTHYROXINE 75 MCG TAB PO (06:05)
[2018-12-17] MEDS: INSULIN ASPART [NOVOLOG] 3 ML PEN SC ×6 (07:20→17:48)
[2018-12-17] MEDS: MULTIVIT/CA CARB/B CMPLX/FA TAB PO (08:57)
[2018-12-17] MEDS: PYRIDOXINE 50 MG TAB PO (08:57)
[2018-12-17] MEDS: LINAGLIPTIN 5 MG TABLET PO (08:57)
[2018-12-17] MEDS: CYANOCOBALAMIN 500 MCG TAB PO (08:57)
[2018-12-17] MEDS: CHOLECALCIFEROL 2,000 UNIT CAP PO (08:57)
[2018-12-17] MEDS: FOLIC ACID 1 MG TAB PO (08:57)
[2018-12-17] MEDS: AMIODARONE 200 MG TAB PO (08:59)
[2018-12-17] MEDS: TOBRAMYCIN 0.3% 5 ML OPH LEFT EYE ×4 (08:59→21:51)
[2018-12-17] MEDS: ISOSORBIDE MONONITRATE(SR)30 MG TAB PO (08:59)
[2018-12-17] MEDS: METOPROLOL (XL) 50 MG TAB PO ×2 (08:59→21:52)
[2018-12-17 09:44] LABS: ANISOCYTOSIS 1+ (0-0); BAND NEUTROPHILS #M 2.7 10^3/ul (0.0-0.6); BAND NEUTROPHILS % (M) 13 % (0-4); GIANT THROMBO% (M) 1 % (0-0); LYMPHOCYTES #M 0.8 10^3/ul (0.8-2.9); LYMPHOCYTES % (M) 4 % (15-51); METAMYELOCYTES #M 1.2 10^3/ul (0.0-0.0); METAMYELOCYTES %M 6 % (0-0); MONOCYTE #M 0.8 10^3/ul (0.3-0.9); MONOCYTES % (M) 4 % (0-11); OVALOCYTES 1+ (0-0); PLATELET ESTIMATE NORMAL; POIKILOCYTOSIS 1+ (0-0); POLYCHROMASIA 2+ (0-0); SEG NEUT #M 15.8 10^3/ul (1.6-7.5); SEGMENTED NEUTROPHILS (M) % 73 % (39-77); SMUDGE%M 2 % (0-0); TOXIC GRANULATION 1+ (0-0)
[2018-12-17] MEDS: SEVELAMER CARBONATE 800 MG TABLET PO (17:46)
[2018-12-17] MEDS: LIDOCAINE 1% (MDV) 20 ML INJ (19:20)
[2018-12-17] MEDS: NACL 0.9% 3 ML SYG IV (21:50)
[2018-12-17] MEDS: ATORVASTATIN 20 MG TAB PO (21:52)
[2018-12-17] MEDS: JAKAFI 5 MG PO (21:57)
[2018-12-17] MEDS: INSULIN GLARGINE [LANTus] (100 UNITS/ML) SYG SC (21:57)
[2018-12-17] MEDS: DOCUSATE SODIUM 100 MG CAP PO (22:00)
[2018-12-17] MEDS: HYDROCODONE/APAP (5/325) TAB PO (22:00)
[2018-12-18] MEDS: ACCU-CHEK XX (02:00)
[2018-12-18 04:53] LABS: ADD MAN DIFF? NO
[2018-12-18 04:59] LABS: ABNORMAL IP MESSAGE 1; BASOPHIL # 0.2 10^3/ul (0.0-0.1); BASOPHILS % 0.8 % (0.0-2.0); EOSINOPHILS # 0.1 10^3/ul (0.0-0.5); EOSINOPHILS % 0.5 % (0.0-7.0); HEMATOCRIT 25.5 % (42.0-52.0); HEMOGLOBIN 7.6 g/dl (14.0-18.0); LYMPHOCYTES # 0.6 10^3/ul (0.8-2.9); LYMPHOCYTES % 2.9 % (15.0-51.0); MEAN CORPUSCULAR HEMOGLOBIN 30.3 pg (29.0-33.0); MEAN CORPUSCULAR HGB CONC 29.8 g/dl (32.0-37.0); MEAN CORPUSCULAR VOLUME 101.6 fl (82.0-101.0); MEAN PLATELET VOLUME 12.4 fl (7.4-10.4); MONOCYTE # 1.5 10^3/ul (0.3-0.9); MONOCYTES % 7.4 % (0.0-11.0); NEUTROPHIL # 14.6 10^3/ul (1.6-7.5); NEUTROPHILS % 72.7 % (39.0-77.0); NUCLEATED RED BLOOD CELLS% 0.1 /100WBC (0.0-0.0); PLATELET COUNT 285 10^3/UL (140-415); POSITIVE DIFF @See below; RED BLOOD COUNT 2.51 10^6/ul (4.70-6.10); RED CELL DISTRIBUTION WIDTH 17.9 % (11.5-14.5)
[2018-12-18 04:59] LABS: WHITE BLOOD COUNT 20.1 10^3/ul (4.8-10.8)
[2018-12-18] MEDS: LEVOTHYROXINE 75 MCG TAB PO (06:23)
[2018-12-18] MEDS: INSULIN ASPART [NOVOLOG] 3 ML PEN SC ×6 (07:20→17:45)
[2018-12-18 07:42] LABS: ANISOCYTOSIS 1+ (0-0); BAND NEUTROPHILS #M 3.4 10^3/ul (0.0-0.6); BAND NEUTROPHILS % (M) 17 % (0-4); BASOPHIL #M 0.2 10^3/ul (0.0-0.0); BASOPHILS % (M) 1 % (0-2); EOSINOPHILS % (M) 2 % (0-7); METAMYELOCYTES #M 0.6 10^3/ul (0.0-0.0); METAMYELOCYTES %M 3 % (0-0); MONOCYTE #M 0.4 10^3/ul (0.3-0.9); MONOCYTES % (M) 2 % (0-11); MYELOCYTES #M 0.6 10^3/ul (0.0-0.0); MYELOCYTES % (M) 3 % (0-0); OVALOCYTES 1+ (0-0); PLATELET ESTIMATE NORMAL; POIKILOCYTOSIS 1+ (0-0); POLYCHROMASIA 1+ (0-0); SEG NEUT #M 15.2 10^3/ul (1.6-7.5); SEGMENTED NEUTROPHILS (M) % 72 % (39-77); SMUDGE%M 21 % (0-0); TOXIC GRANULATION 1+ (0-0)
[2018-12-18] MEDS: METOPROLOL (XL) 50 MG TAB PO ×2 (08:44→21:56)
[2018-12-18] MEDS: CYANOCOBALAMIN 500 MCG TAB PO (08:44)
[2018-12-18] MEDS: FOLIC ACID 1 MG TAB PO (08:44)
[2018-12-18] MEDS: LINAGLIPTIN 5 MG TABLET PO (08:44)
[2018-12-18] MEDS: CHOLECALCIFEROL 2,000 UNIT CAP PO (08:45)
[2018-12-18] MEDS: MULTIVIT/CA CARB/B CMPLX/FA TAB PO (08:45)
[2018-12-18] MEDS: PYRIDOXINE 50 MG TAB PO (08:45)
[2018-12-18] MEDS: AMIODARONE 200 MG TAB PO (08:45)
[2018-12-18] MEDS: ISOSORBIDE MONONITRATE(SR)30 MG TAB PO (08:45)
[2018-12-18] MEDS: TOBRAMYCIN 0.3% 5 ML OPH LEFT EYE ×4 (08:46→21:54)
[2018-12-18] MEDS: SEVELAMER CARBONATE 800 MG TABLET PO (17:45)
[2018-12-18] MEDS: INSULIN GLARGINE [LANTus] (100 UNITS/ML) SYG SC (21:54)
[2018-12-18] MEDS: JAKAFI 5 MG PO (21:55)
[2018-12-18] MEDS: ATORVASTATIN 20 MG TAB PO (21:56)
[2018-12-18] MEDS: DOCUSATE SODIUM 100 MG CAP PO (23:09)
[2018-12-18] MEDS: HYDROCODONE/APAP (5/325) TAB PO (23:09)
[2018-12-19] MEDS: ACCU-CHEK XX (02:00)
[2018-12-19] MEDS: LEVOTHYROXINE 75 MCG TAB PO (06:48)
[2018-12-19] MEDS: INSULIN ASPART [NOVOLOG] 3 ML PEN SC ×6 (07:20→18:00)
[2018-12-19] MEDS: PYRIDOXINE 50 MG TAB PO (08:31)
[2018-12-19] MEDS: FOLIC ACID 1 MG TAB PO (08:31)
[2018-12-19] MEDS: MULTIVIT/CA CARB/B CMPLX/FA TAB PO (08:31)
[2018-12-19] MEDS: LINAGLIPTIN 5 MG TABLET PO (08:32)
[2018-12-19] MEDS: CYANOCOBALAMIN 500 MCG TAB PO (08:32)
[2018-12-19] MEDS: ISOSORBIDE MONONITRATE(SR)30 MG TAB PO (08:32)
[2018-12-19] MEDS: AMIODARONE 200 MG TAB PO (08:33)
[2018-12-19] MEDS: METOPROLOL (XL) 50 MG TAB PO ×2 (08:34→23:00)
[2018-12-19] MEDS: TOBRAMYCIN 0.3% 5 ML OPH LEFT EYE ×4 (08:35→23:01)
[2018-12-19] MEDS: CHOLECALCIFEROL 2,000 UNIT CAP PO (08:35)
[2018-12-19 08:58] LABS: ABNORMAL IP MESSAGE 1; HEMATOCRIT 25.1 % (42.0-52.0); HEMOGLOBIN 7.6 g/dl (14.0-18.0); MEAN CORPUSCULAR HEMOGLOBIN 30.4 pg (29.0-33.0); MEAN CORPUSCULAR HGB CONC 30.3 g/dl (32.0-37.0); MEAN CORPUSCULAR VOLUME 100.4 fl (82.0-101.0); MEAN PLATELET VOLUME 11.7 fl (7.4-10.4); PLATELET COUNT 256 10^3/UL (140-415); POSITIVE DIFF @See below
[2018-12-19 08:58] LABS: WHITE BLOOD COUNT 21.9 10^3/ul (4.8-10.8)
[2018-12-19 09:03] LABS: ADD MAN DIFF? YES
[2018-12-19 09:16] LABS: ANION GAP 11 (5-13); BLOOD UREA NITROGEN 54 mg/dl (7-20); CALCIUM 8.2 mg/dl (8.4-10.2); CARBON DIOXIDE 28 mmol/L (21-31); CHLORIDE 88 mmol/L (97-110); CREATININE 6.45 mg/dl (0.61-1.24); GLUCOSE 109 mg/dl (70-220); POTASSIUM 4.8 mmol/L (3.5-5.1); SODIUM 127 mmol/L (135-144)
[2018-12-19] MEDS: ALBUMIN HUMAN 25% 100 ML IV (10:26)
[2018-12-19 11:09] LABS: ANISOCYTOSIS 1+ (0-0); BAND NEUTROPHILS #M 2.4 10^3/ul (0.0-0.6); BAND NEUTROPHILS % (M) 11 % (0-4); EOSINOPHILS % (M) 2 % (0-7); GIANT THROMBO% (M) 2 % (0-0); LYMPHOCYTES #M 0.4 10^3/ul (0.8-2.9); LYMPHOCYTES % (M) 2 % (15-51); METAMYELOCYTES #M 0.2 10^3/ul (0.0-0.0); METAMYELOCYTES %M 1 % (0-0); MONOCYTE #M 1.3 10^3/ul (0.3-0.9); MONOCYTES % (M) 6 % (0-11); MYELOCYTES #M 0.4 10^3/ul (0.0-0.0); MYELOCYTES % (M) 2 % (0-0); PLATELET ESTIMATE NORMAL; POIKILOCYTOSIS 1+ (0-0); POLYCHROMASIA 1+ (0-0); SEG NEUT #M 17.2 10^3/ul (1.6-7.5); SEGMENTED NEUTROPHILS (M) % 76 % (39-77)
[2018-12-19] MEDS: SEVELAMER CARBONATE 800 MG TABLET PO (17:51)
[2018-12-19] MEDS: CEFAZOLIN 2 GM/50 ML (PMX) 50 ML IVPB (17:56)
[2018-12-19] MEDS: EPOETIN ALFA-EPBX (ESRD) 10,000 UNIT/ML VIAL SC (17:57)
[2018-12-19 21:42] LABS: C-REACTIVE PROTEIN 6.9 mg/dl (0.0-0.9)
[2018-12-19] MEDS: INSULIN GLARGINE [LANTus] (100 UNITS/ML) SYG SC (22:58)
[2018-12-19] MEDS: BALSAM PERU/CASTOR OIL 60 GM TUBE TOP (22:59)
[2018-12-19] MEDS: ATORVASTATIN 20 MG TAB PO (22:59)
[2018-12-19] MEDS: JAKAFI 5 MG PO (23:01)
[2018-12-19] MEDS: APIXABAN 5 MG TABLET PO (23:04)
[2018-12-20] MEDS: ACCU-CHEK XX (02:00)
[2018-12-20 05:12] LABS: WHITE BLOOD COUNT 18.3 10^3/ul (4.8-10.8)
[2018-12-20 05:12] LABS: ABNORMAL IP MESSAGE 1; HEMATOCRIT 21.9 % (42.0-52.0); MEAN CORPUSCULAR HEMOGLOBIN 30.7 pg (29.0-33.0); MEAN CORPUSCULAR HGB CONC 30.1 g/dl (32.0-37.0); MEAN CORPUSCULAR VOLUME 101.9 fl (82.0-101.0); MEAN PLATELET VOLUME 12.6 fl (7.4-10.4); PLATELET COUNT 228 10^3/UL (140-415); POSITIVE DIFF @See below; RED BLOOD COUNT 2.15 10^6/ul (4.70-6.10); RED CELL DISTRIBUTION WIDTH 18.2 % (11.5-14.5)
[2018-12-20 05:29] LABS: ADD MAN DIFF? YES; HEMOGLOBIN 6.6 g/dl (14.0-18.0)
[2018-12-20 05:39] LABS: ALANINE AMINOTRANSFERASE 10 IU/L (13-69); ALBUMIN/GLOBULIN RATIO 1.07; ALKALINE PHOSPHATASE 252 IU/L (42-121); ANION GAP 10 (5-13); ASPARTATE AMINO TRANSFERASE 28 IU/L (15-46); BILIRUBIN,INDIRECT 0.1 mg/dl (0-1.1); BILIRUBIN,TOTAL 0.1 mg/dl (0.2-1.3); BLOOD UREA NITROGEN 32 mg/dl (7-20); CALCIUM 8.2 mg/dl (8.4-10.2); CARBON DIOXIDE 30 mmol/L (21-31); CHLORIDE 94 mmol/L (97-110); CREATININE 4.59 mg/dl (0.61-1.24); GLUCOSE 170 mg/dl (70-220); SODIUM 134 mmol/L (135-144); TOTAL PROTEIN 5.8 g/dl (6.1-8.1)
[2018-12-20 05:40] LABS: PHOSPHORUS 3.9 mg/dl (2.5-4.9)
[2018-12-20 05:41] LABS: POTASSIUM 3.9 mmol/L (3.5-5.1)
[2018-12-20] MEDS: LEVOTHYROXINE 75 MCG TAB PO (06:25)
[2018-12-20 08:21] LABS: ANISOCYTOSIS 1+ (0-0); BAND NEUTROPHILS #M 2.5 10^3/ul (0.0-0.6); BAND NEUTROPHILS % (M) 14 % (0-4); BASOPHIL #M 0.1 10^3/ul (0.0-0.0); BASOPHILS % (M) 1 % (0-2); EOSINOPHILS % (M) 1 % (0-7); LYMPHOCYTES #M 0.1 10^3/ul (0.8-2.9); LYMPHOCYTES % (M) 1 % (15-51); MONOCYTE #M 0.7 10^3/ul (0.3-0.9); MONOCYTES % (M) 4 % (0-11); MYELOCYTES #M 0.5 10^3/ul (0.0-0.0); MYELOCYTES % (M) 3 % (0-0); PLATELET ESTIMATE NORMAL; POIKILOCYTOSIS 1+ (0-0); POLYCHROMASIA 1+ (0-0); SEG NEUT #M 14.4 10^3/ul (1.6-7.5); SEGMENTED NEUTROPHILS (M) % 76 % (39-77); SMUDGE%M 3 % (0-0)
[2018-12-20] MEDS: DOCUSATE SODIUM 100 MG CAP PO (09:00)
[2018-12-20] MEDS: METOPROLOL (XL) 50 MG TAB PO ×2 (09:13→20:22)
[2018-12-20] MEDS: CHOLECALCIFEROL 2,000 UNIT CAP PO (09:13)
[2018-12-20] MEDS: LINAGLIPTIN 5 MG TABLET PO (09:14)
[2018-12-20] MEDS: APIXABAN 5 MG TABLET PO ×2 (09:14→20:22)
[2018-12-20] MEDS: FOLIC ACID 1 MG TAB PO (09:14)
[2018-12-20] MEDS: CYANOCOBALAMIN 500 MCG TAB PO (09:14)
[2018-12-20] MEDS: AMIODARONE 200 MG TAB PO (09:14)
[2018-12-20] MEDS: ISOSORBIDE MONONITRATE(SR)30 MG TAB PO (09:15)
[2018-12-20] MEDS: PYRIDOXINE 50 MG TAB PO (09:15)
[2018-12-20] MEDS: MULTIVIT/CA CARB/B CMPLX/FA TAB PO (09:15)
[2018-12-20] MEDS: INSULIN ASPART [NOVOLOG] 3 ML PEN SC ×6 (09:22→17:46)
[2018-12-20] MEDS: BALSAM PERU/CASTOR OIL 60 GM TUBE TOP (09:24)
[2018-12-20 11:52] LABS: IMMEDIATE SPIN CROSSMATCH 1 2
[2018-12-20 13:58] LABS: PROCALCITONIN 0.68 ng/mL (0.00-0.10)
[2018-12-20] MEDS: SEVELAMER CARBONATE 800 MG TABLET PO (17:44)
[2018-12-20] MEDS: INSULIN GLARGINE [LANTus] (100 UNITS/ML) SYG SC (20:21)
[2018-12-20] MEDS: JAKAFI 5 MG PO (20:21)
[2018-12-20] MEDS: ATORVASTATIN 20 MG TAB PO (20:21)
[2018-12-20] MEDS: HYDROCODONE/APAP (5/325) TAB PO (21:26)
[2018-12-21] MEDS: ACCU-CHEK XX (01:29)
[2018-12-21 05:17] LABS: ADD MAN DIFF? NO
[2018-12-21 05:22] LABS: WHITE BLOOD COUNT 19.4 10^3/ul (4.8-10.8)
[2018-12-21 05:22] LABS: ABNORMAL IP MESSAGE 1; HEMATOCRIT 29.9 % (42.0-52.0); HEMOGLOBIN 9.1 g/dl (14.0-18.0); MEAN CORPUSCULAR HEMOGLOBIN 30.7 pg (29.0-33.0); MEAN CORPUSCULAR HGB CONC 30.4 g/dl (32.0-37.0); MEAN PLATELET VOLUME 12.6 fl (7.4-10.4); PLATELET COUNT 216 10^3/UL (140-415); POSITIVE DIFF @See below; RED BLOOD COUNT 2.96 10^6/ul (4.70-6.10); RED CELL DISTRIBUTION WIDTH 17.7 % (11.5-14.5)
[2018-12-21 05:48] LABS: C-REACTIVE PROTEIN 4.7 mg/dl (0.0-0.9)
[2018-12-21 05:52] LABS: ANION GAP 7 (5-13); BLOOD UREA NITROGEN 31 mg/dl (7-20); CALCIUM 8.2 mg/dl (8.4-10.2); CARBON DIOXIDE 31 mmol/L (21-31); CHLORIDE 95 mmol/L (97-110); CREATININE 4.15 mg/dl (0.61-1.24); GLUCOSE 109 mg/dl (70-220); PHOSPHORUS 3.5 mg/dl (2.5-4.9); POTASSIUM 3.9 mmol/L (3.5-5.1); SODIUM 133 mmol/L (135-144)
[2018-12-21 06:47] LABS: ERYTHROCYTE SEDIMENTATION RATE 79 mm/Hr (0-20)
[2018-12-21] MEDS: INSULIN ASPART [NOVOLOG] 3 ML PEN SC ×6 (08:48→17:56)
[2018-12-21] MEDS: AMIODARONE 200 MG TAB PO (08:50)
[2018-12-21] MEDS: LEVOTHYROXINE 75 MCG TAB PO (08:50)
[2018-12-21] MEDS: CHOLECALCIFEROL 2,000 UNIT CAP PO (08:50)
[2018-12-21] MEDS: MULTIVIT/CA CARB/B CMPLX/FA TAB PO (08:50)
[2018-12-21] MEDS: FOLIC ACID 1 MG TAB PO (08:51)
[2018-12-21] MEDS: PYRIDOXINE 50 MG TAB PO (08:51)
[2018-12-21] MEDS: APIXABAN 5 MG TABLET PO ×2 (08:51→21:54)
[2018-12-21] MEDS: ISOSORBIDE MONONITRATE(SR)30 MG TAB PO (08:51)
[2018-12-21] MEDS: LINAGLIPTIN 5 MG TABLET PO (08:51)
[2018-12-21] MEDS: METOPROLOL (XL) 50 MG TAB PO ×2 (08:51→21:54)
[2018-12-21] MEDS: DOCUSATE SODIUM 100 MG CAP PO (08:51)
[2018-12-21] MEDS: BALSAM PERU/CASTOR OIL 60 GM TUBE TOP (08:52)
[2018-12-21] MEDS: CYANOCOBALAMIN 500 MCG TAB PO (08:52)
[2018-12-21 09:39] LABS: ANISOCYTOSIS 1+ (0-0); BAND NEUTROPHILS #M 1.5 10^3/ul (0.0-0.6); BAND NEUTROPHILS % (M) 8 % (0-4); HYPOCHROMASIA 1+ (0-0); LYMPHOCYTES #M 0.3 10^3/ul (0.8-2.9); LYMPHOCYTES % (M) 2 % (15-51); METAMYELOCYTES #M 0.3 10^3/ul (0.0-0.0); METAMYELOCYTES %M 2 % (0-0); MICROCYTOSIS 1+ (0-0); MONOCYTE #M 0.5 10^3/ul (0.3-0.9); MONOCYTES % (M) 3 % (0-11); OVALOCYTES 1+ (0-0); PLATELET ESTIMATE NORMAL; POIKILOCYTOSIS 1+ (0-0); POLYCHROMASIA 1+ (0-0); SEG NEUT #M 16.8 10^3/ul (1.6-7.5); SEGMENTED NEUTROPHILS (M) % 85 % (39-77); SMUDGE%M 2 % (0-0)
[2018-12-21] MEDS: LACTULOSE 30ML CUP PO (10:53)
[2018-12-21] MEDS: BISACODYL 10 MG SUPP PR (10:54)
[2018-12-21 11:27] LABS: ADD UMIC YES; UR ASCORBIC ACID NEGATIVE (NEGATIVE); UR BACTERIA FEW /HPF (NONE SEEN); UR BILIRUBIN (Dip) NEGATIVE (NEGATIVE); UR BLOOD (Dip) 3+ mg/dL (NEGATIVE); UR CLARITY SLIGHTLY CLOUDY (CLEAR); UR COLOR AMBER (YELLOW); UR GLUCOSE (Dip) NEGATIVE (NEGATIVE); UR KETONES (Dip) NEGATIVE (NEGATIVE); UR LEUKOCYTE ESTERASE (Dip) 2+ Leu/ul (NEGATIVE); UR NITRITE (Dip) NEGATIVE (NEGATIVE); UR RBC 35 /HPF (0-5); UR SPECIFIC GRAVITY (Dip) 1.015 (1.003-1.030); UR TOTAL PROTEIN (Dip) 1+ mg/dl (NEGATIVE); UR UROBILINOGEN (Dip) NEGATIVE (NEGATIVE); UR WBC 29 /HPF (0-5)
[2018-12-21 11:45] LABS: OCCULT BLOOD STOOL NEGATIVE (NEGATIVE)
[2018-12-21] MEDS: ALBUMIN HUMAN 25% 100 ML IV ×3 (13:55→15:39)
[2018-12-21] MEDS: SEVELAMER CARBONATE 800 MG TABLET PO (17:54)
[2018-12-21] MEDS: CEFAZOLIN 2 GM/50 ML (PMX) 50 ML IVPB (17:54)
[2018-12-21] MEDS: ATORVASTATIN 20 MG TAB PO (21:53)
[2018-12-21] MEDS: INSULIN GLARGINE [LANTus] (100 UNITS/ML) SYG SC (22:04)
[2018-12-21] MEDS: EPOETIN ALFA-EPBX (ESRD) 10,000 UNIT/ML VIAL SC (22:06)
[2018-12-21] MEDS: JAKAFI 5 MG PO (22:09)
[2018-12-22] MEDS: ACCU-CHEK XX (02:00)
[2018-12-22 05:14] LABS: ADD MAN DIFF? NO
[2018-12-22 05:27] LABS: ABNORMAL IP MESSAGE 1; BASOPHIL # 0.1 10^3/ul (0.0-0.1); BASOPHILS % 0.4 % (0.0-2.0); EOSINOPHILS # 0.1 10^3/ul (0.0-0.5); EOSINOPHILS % 0.5 % (0.0-7.0); HEMATOCRIT 30.1 % (42.0-52.0); HEMOGLOBIN 9.2 g/dl (14.0-18.0); LYMPHOCYTES # 0.7 10^3/ul (0.8-2.9); LYMPHOCYTES % 4.2 % (15.0-51.0); MEAN CORPUSCULAR HEMOGLOBIN 30.9 pg (29.0-33.0); MEAN CORPUSCULAR HGB CONC 30.6 g/dl (32.0-37.0); MEAN PLATELET VOLUME 12.7 fl (7.4-10.4); MONOCYTE # 1.1 10^3/ul (0.3-0.9); MONOCYTES % 6.4 % (0.0-11.0); NEUTROPHIL # 13.8 10^3/ul (1.6-7.5); NEUTROPHILS % 81.3 % (39.0-77.0); PLATELET COUNT 183 10^3/UL (140-415); POSITIVE DIFF @See below; RED BLOOD COUNT 2.98 10^6/ul (4.70-6.10); RED CELL DISTRIBUTION WIDTH 17.8 % (11.5-14.5)
[2018-12-22 05:48] LABS: ANION GAP 9 (5-13); BLOOD UREA NITROGEN 22 mg/dl (7-20); CALCIUM 9.2 mg/dl (8.4-10.2); CARBON DIOXIDE 30 mmol/L (21-31); CHLORIDE 97 mmol/L (97-110); CREATININE 3.78 mg/dl (0.61-1.24); GLUCOSE 114 mg/dl (70-220); PHOSPHORUS 3.2 mg/dl (2.5-4.9); SODIUM 136 mmol/L (135-144)
[2018-12-22] MEDS: LEVOTHYROXINE 75 MCG TAB PO (06:58)
[2018-12-22] MEDS: INSULIN ASPART [NOVOLOG] 3 ML PEN SC ×6 (08:26→18:17)
[2018-12-22] MEDS: MULTIVIT/CA CARB/B CMPLX/FA TAB PO (08:27)
[2018-12-22] MEDS: CHOLECALCIFEROL 2,000 UNIT CAP PO (08:30)
[2018-12-22] MEDS: DOCUSATE SODIUM 100 MG CAP PO (08:30)
[2018-12-22] MEDS: AMIODARONE 200 MG TAB PO (08:30)
[2018-12-22] MEDS: ISOSORBIDE MONONITRATE(SR)30 MG TAB PO (08:31)
[2018-12-22] MEDS: APIXABAN 5 MG TABLET PO ×2 (08:31→21:25)
[2018-12-22] MEDS: LINAGLIPTIN 5 MG TABLET PO (08:32)
[2018-12-22] MEDS: FOLIC ACID 1 MG TAB PO (08:32)
[2018-12-22] MEDS: METOPROLOL (XL) 50 MG TAB PO ×2 (08:32→21:25)
[2018-12-22] MEDS: PYRIDOXINE 50 MG TAB PO (08:33)
[2018-12-22] MEDS: CYANOCOBALAMIN 500 MCG TAB PO (08:33)
[2018-12-22] MEDS: BALSAM PERU/CASTOR OIL 60 GM TUBE TOP (08:35)
[2018-12-22 10:52] LABS: ANISOCYTOSIS 1+ (0-0); BAND NEUTROPHILS #M 0.8 10^3/ul (0.0-0.6); BAND NEUTROPHILS % (M) 5 % (0-4); EOSINOPHILS % (M) 1 % (0-7); LYMPHOCYTES #M 0.5 10^3/ul (0.8-2.9); LYMPHOCYTES % (M) 3 % (15-51); METAMYELOCYTES #M 0.1 10^3/ul (0.0-0.0); METAMYELOCYTES %M 1 % (0-0); MONOCYTE #M 1.5 10^3/ul (0.3-0.9); MONOCYTES % (M) 9 % (0-11); MYELOCYTES #M 0.3 10^3/ul (0.0-0.0); MYELOCYTES % (M) 2 % (0-0); OVALOCYTES 1+ (0-0); PLATELET ESTIMATE NORMAL; POIKILOCYTOSIS 1+ (0-0); POLYCHROMASIA 2+ (0-0); SEG NEUT #M 13.6 10^3/ul (1.6-7.5); SEGMENTED NEUTROPHILS (M) % 79 % (39-77); SMUDGE%M 4 % (0-0)
[2018-12-22] MEDS: LACTULOSE 30ML CUP PO (12:51)
[2018-12-22] MEDS: SEVELAMER CARBONATE 800 MG TABLET PO (18:13)
[2018-12-22] MEDS: ATORVASTATIN 20 MG TAB PO (21:23)
[2018-12-22] MEDS: JAKAFI 5 MG PO (21:28)
[2018-12-22] MEDS: INSULIN GLARGINE [LANTus] (100 UNITS/ML) SYG SC (21:29)
[2018-12-23] MEDS: ACCU-CHEK XX (02:00)
[2018-12-23 05:07] LABS: ADD MAN DIFF? NO
[2018-12-23 05:11] LABS: WHITE BLOOD COUNT 15.2 10^3/ul (4.8-10.8)
[2018-12-23 05:11] LABS: ABNORMAL IP MESSAGE 1; BASOPHIL # 0.1 10^3/ul (0.0-0.1); BASOPHILS % 0.5 % (0.0-2.0); EOSINOPHILS # 0.1 10^3/ul (0.0-0.5); EOSINOPHILS % 0.6 % (0.0-7.0); HEMATOCRIT 28.9 % (42.0-52.0); HEMOGLOBIN 8.9 g/dl (14.0-18.0); LYMPHOCYTES # 0.9 10^3/ul (0.8-2.9); LYMPHOCYTES % 6.2 % (15.0-51.0); MEAN CORPUSCULAR HEMOGLOBIN 31.2 pg (29.0-33.0); MEAN CORPUSCULAR HGB CONC 30.8 g/dl (32.0-37.0); MEAN CORPUSCULAR VOLUME 101.4 fl (82.0-101.0); MEAN PLATELET VOLUME 11.9 fl (7.4-10.4); MONOCYTE # 1.1 10^3/ul (0.3-0.9); MONOCYTES % 7.2 % (0.0-11.0); NEUTROPHIL # 12.1 10^3/ul (1.6-7.5); NEUTROPHILS % 79.3 % (39.0-77.0); PLATELET COUNT 173 10^3/UL (140-415); POSITIVE DIFF @See below; RED BLOOD COUNT 2.85 10^6/ul (4.70-6.10); RED CELL DISTRIBUTION WIDTH 17.6 % (11.5-14.5)
[2018-12-23 05:47] LABS: ANION GAP 8 (5-13); BLOOD UREA NITROGEN 37 mg/dl (7-20); CALCIUM 8.7 mg/dl (8.4-10.2); CARBON DIOXIDE 29 mmol/L (21-31); CHLORIDE 93 mmol/L (97-110); CREATININE 5.18 mg/dl (0.61-1.24); GLUCOSE 88 mg/dl (70-220); PHOSPHORUS 3.3 mg/dl (2.5-4.9); POTASSIUM 4.4 mmol/L (3.5-5.1); SODIUM 130 mmol/L (135-144)
[2018-12-23] MEDS: LEVOTHYROXINE 75 MCG TAB PO (06:09)
[2018-12-23] MEDS: INSULIN ASPART [NOVOLOG] 3 ML PEN SC ×6 (08:44→17:38)
[2018-12-23] MEDS: FOLIC ACID 1 MG TAB PO (08:45)
[2018-12-23] MEDS: PYRIDOXINE 50 MG TAB PO (08:45)
[2018-12-23] MEDS: CYANOCOBALAMIN 500 MCG TAB PO (08:45)
[2018-12-23] MEDS: DOCUSATE SODIUM 100 MG CAP PO (08:46)
[2018-12-23] MEDS: LINAGLIPTIN 5 MG TABLET PO (08:49)
[2018-12-23] MEDS: MULTIVIT/CA CARB/B CMPLX/FA TAB PO (08:49)
[2018-12-23] MEDS: CHOLECALCIFEROL 2,000 UNIT CAP PO (08:49)
[2018-12-23] MEDS: AMIODARONE 200 MG TAB PO (08:49)
[2018-12-23] MEDS: LACTULOSE 30ML CUP PO (08:50)
[2018-12-23] MEDS: METOPROLOL (XL) 50 MG TAB PO ×2 (08:50→21:34)
[2018-12-23] MEDS: ISOSORBIDE MONONITRATE(SR)30 MG TAB PO (08:50)
[2018-12-23] MEDS: APIXABAN 5 MG TABLET PO ×2 (08:50→21:34)
[2018-12-23] MEDS: BALSAM PERU/CASTOR OIL 60 GM TUBE TOP (08:51)
[2018-12-23] MEDS: ALBUMIN HUMAN 25% 100 ML IV ×2 (09:08→10:45)
[2018-12-23 09:20] LABS: ANISOCYTOSIS 1+ (0-0); BAND NEUTROPHILS #M 0.9 10^3/ul (0.0-0.6); BAND NEUTROPHILS % (M) 6 % (0-4); EOSINOPHILS % (M) 1 % (0-7); LYMPHOCYTES #M 0.9 10^3/ul (0.8-2.9); LYMPHOCYTES % (M) 6 % (15-51); MONOCYTE #M 0.3 10^3/ul (0.3-0.9); MONOCYTES % (M) 2 % (0-11); PLATELET ESTIMATE NORMAL; POIKILOCYTOSIS 1+ (0-0); POLYCHROMASIA 1+ (0-0); SEG NEUT #M 13.1 10^3/ul (1.6-7.5); SEGMENTED NEUTROPHILS (M) % 85 % (39-77); SMUDGE%M 10 % (0-0)
[2018-12-23] MEDS: POLYETHYLENE GLYCOL 17 GM PACKET PO (09:41)
[2018-12-23] MEDS: L ACIDOPHIL/B LACTIS/B LONGUM CAPSULE PO ×2 (09:41→21:34)
[2018-12-23] MEDS: BISACODYL 10 MG SUPP PR (16:24)
[2018-12-23] MEDS: CEFAZOLIN 1 GM/50 ML (PMX) 50 ML IVPB (16:24)
[2018-12-23] MEDS: SEVELAMER CARBONATE 800 MG TABLET PO (17:27)
[2018-12-23] MEDS: CEFAZOLIN 2 GM/50 ML (PMX) 50 ML IVPB (17:30)
[2018-12-23] MEDS: EPOETIN ALFA-EPBX (ESRD) 10,000 UNIT/ML VIAL SC (17:33)
[2018-12-23] MEDS: ATORVASTATIN 20 MG TAB PO (21:34)
[2018-12-23] MEDS: INSULIN GLARGINE [LANTus] (100 UNITS/ML) SYG SC (21:39)
[2018-12-23] MEDS: JAKAFI 5 MG PO (21:39)
[2018-12-24] MEDS: ACCU-CHEK XX (02:00)
[2018-12-24 05:22] LABS: ADD MAN DIFF? NO
[2018-12-24 05:26] LABS: ABNORMAL IP MESSAGE 1; BASOPHILS % 0.3 % (0.0-2.0); EOSINOPHILS # 0.2 10^3/ul (0.0-0.5); EOSINOPHILS % 1.1 % (0.0-7.0); HEMATOCRIT 31.6 % (42.0-52.0); HEMOGLOBIN 9.6 g/dl (14.0-18.0); LYMPHOCYTES # 0.5 10^3/ul (0.8-2.9); MEAN CORPUSCULAR HEMOGLOBIN 30.5 pg (29.0-33.0); MEAN CORPUSCULAR HGB CONC 30.4 g/dl (32.0-37.0); MEAN CORPUSCULAR VOLUME 100.3 fl (82.0-101.0); MEAN PLATELET VOLUME 12.7 fl (7.4-10.4); MONOCYTE # 1.1 10^3/ul (0.3-0.9); MONOCYTES % 7.4 % (0.0-11.0); NEUTROPHIL # 12.5 10^3/ul (1.6-7.5); NEUTROPHILS % 82.5 % (39.0-77.0); PLATELET COUNT 174 10^3/UL (140-415); POSITIVE DIFF @See below; RED BLOOD COUNT 3.15 10^6/ul (4.70-6.10); RED CELL DISTRIBUTION WIDTH 17.6 % (11.5-14.5)
[2018-12-24 05:26] LABS: WHITE BLOOD COUNT 15.1 10^3/ul (4.8-10.8)
[2018-12-24 06:00] LABS: ANION GAP 13 (5-13); BLOOD UREA NITROGEN 32 mg/dl (7-20); CALCIUM 9.4 mg/dl (8.4-10.2); CARBON DIOXIDE 28 mmol/L (21-31); CHLORIDE 94 mmol/L (97-110); CREATININE 4.35 mg/dl (0.61-1.24); GLUCOSE 131 mg/dl (70-220); POTASSIUM 4.6 mmol/L (3.5-5.1); SODIUM 135 mmol/L (135-144)
[2018-12-24] MEDS: INSULIN ASPART [NOVOLOG] 3 ML PEN SC ×6 (07:20→17:56)
[2018-12-24] MEDS: LEVOTHYROXINE 75 MCG TAB PO (07:42)
[2018-12-24] MEDS: CHOLECALCIFEROL 2,000 UNIT CAP PO (09:10)
[2018-12-24] MEDS: MULTIVIT/CA CARB/B CMPLX/FA TAB PO (09:11)
[2018-12-24] MEDS: CYANOCOBALAMIN 500 MCG TAB PO (09:11)
[2018-12-24] MEDS: METOPROLOL (XL) 50 MG TAB PO ×2 (09:11→20:33)
[2018-12-24] MEDS: FOLIC ACID 1 MG TAB PO (09:12)
[2018-12-24] MEDS: LINAGLIPTIN 5 MG TABLET PO (09:12)
[2018-12-24] MEDS: PYRIDOXINE 50 MG TAB PO (09:12)
[2018-12-24] MEDS: LACTULOSE 30ML CUP PO (09:13)
[2018-12-24] MEDS: ISOSORBIDE MONONITRATE(SR)30 MG TAB PO (09:19)
[2018-12-24] MEDS: L ACIDOPHIL/B LACTIS/B LONGUM CAPSULE PO ×2 (09:19→20:33)
[2018-12-24] MEDS: DOCUSATE SODIUM 100 MG CAP PO (09:20)
[2018-12-24] MEDS: AMIODARONE 200 MG TAB PO (09:21)
[2018-12-24] MEDS: APIXABAN 5 MG TABLET PO ×2 (09:21→20:33)
[2018-12-24] MEDS: POLYETHYLENE GLYCOL 17 GM PACKET PO (09:22)
[2018-12-24] MEDS: BALSAM PERU/CASTOR OIL 60 GM TUBE TOP (09:23)
[2018-12-24 09:25] LABS: ANISOCYTOSIS 1+ (0-0); BAND NEUTROPHILS #M 0.6 10^3/ul (0.0-0.6); BAND NEUTROPHILS % (M) 4 % (0-4); LYMPHOCYTES #M 0.3 10^3/ul (0.8-2.9); LYMPHOCYTES % (M) 2 % (15-51); METAMYELOCYTES #M 0.4 10^3/ul (0.0-0.0); METAMYELOCYTES %M 3 % (0-0); MONOCYTE #M 1.3 10^3/ul (0.3-0.9); MONOCYTES % (M) 9 % (0-11); MYELOCYTES #M 0.1 10^3/ul (0.0-0.0); MYELOCYTES % (M) 1 % (0-0); OVALOCYTES 1+ (0-0); PLATELET ESTIMATE NORMAL; POIKILOCYTOSIS 1+ (0-0); POLYCHROMASIA 1+ (0-0); SEG NEUT #M 12.3 10^3/ul (1.6-7.5); SEGMENTED NEUTROPHILS (M) % 81 % (39-77); SMUDGE%M 6 % (0-0)
[2018-12-24] MEDS ORDERED: SOD CHLORIDE 0.9% 1,000 ML IV (14:52)
[2018-12-24] MEDS ORDERED: ALBUMIN HUMAN 25% 100 ML IV (15:00)
[2018-12-24] MEDS ORDERED: ALBUMIN HUMAN 25% 50 ML IV (15:00)
[2018-12-24] MEDS ORDERED: ALBUMIN HUMAN 5% 250 ML IV (15:00)
[2018-12-24] MEDS ORDERED: HEPARIN 1000 UNITS/ML 10 ML INJ HE ×2 (15:00)
[2018-12-24] MEDS ORDERED: MANNITOL 25% 50 ML IV (15:00)
[2018-12-24 16:29] LABS: ADD MAN DIFF? NO
[2018-12-24 16:31] LABS: WHITE BLOOD COUNT 16.2 10^3/ul (4.8-10.8)
[2018-12-24 16:31] LABS: ABNORMAL IP MESSAGE 1; BASOPHIL # 0.1 10^3/ul (0.0-0.1); BASOPHILS % 0.4 % (0.0-2.0); EOSINOPHILS # 0.1 10^3/ul (0.0-0.5); EOSINOPHILS % 0.5 % (0.0-7.0); HEMATOCRIT 32.3 % (42.0-52.0); HEMOGLOBIN 9.8 g/dl (14.0-18.0); LYMPHOCYTES # 0.5 10^3/ul (0.8-2.9); LYMPHOCYTES % 3.2 % (15.0-51.0); MEAN CORPUSCULAR HEMOGLOBIN 31.1 pg (29.0-33.0); MEAN CORPUSCULAR HGB CONC 30.3 g/dl (32.0-37.0); MEAN CORPUSCULAR VOLUME 102.5 fl (82.0-101.0); MEAN PLATELET VOLUME 12.9 fl (7.4-10.4); MONOCYTE # 1.4 10^3/ul (0.3-0.9); MONOCYTES % 8.7 % (0.0-11.0); NEUTROPHIL # 13.5 10^3/ul (1.6-7.5); NEUTROPHILS % 83.3 % (39.0-77.0); PLATELET COUNT 128 10^3/UL (140-415); POSITIVE DIFF @See below; RED BLOOD COUNT 3.15 10^6/ul (4.70-6.10); RED CELL DISTRIBUTION WIDTH 17.8 % (11.5-14.5)
[2018-12-24] MEDS: PETROLATUM 5 GM OINT TOP (16:49)
[2018-12-24 16:51] LABS: ANION GAP 15 (5-13); BLOOD UREA NITROGEN 39 mg/dl (7-20); CALCIUM 9.3 mg/dl (8.4-10.2); CARBON DIOXIDE 25 mmol/L (21-31); CHLORIDE 94 mmol/L (97-110); CREATININE 4.95 mg/dl (0.61-1.24); GLUCOSE 110 mg/dl (70-220); POTASSIUM 4.5 mmol/L (3.5-5.1); SODIUM 134 mmol/L (135-144)
[2018-12-24 17:21] LABS: HEPATITIS B SURFACE ANTIGEN NEGATIVE (NEGATIVE)
[2018-12-24] MEDS: SEVELAMER CARBONATE 800 MG TABLET PO (17:52)
[2018-12-24] MEDS: ATORVASTATIN 20 MG TAB PO (20:33)
[2018-12-24] MEDS: INSULIN GLARGINE [LANTus] (100 UNITS/ML) SYG SC (20:37)
[2018-12-24] MEDS: JAKAFI 5 MG PO (20:38)
[2018-12-25] MEDS: ACCU-CHEK XX (02:00)
[2018-12-25 05:21] LABS: ADD MAN DIFF? NO
[2018-12-25 05:33] LABS: BASOPHIL # 0.1 10^3/ul (0.0-0.1); BASOPHILS % 0.4 % (0.0-2.0); EOSINOPHILS # 0.2 10^3/ul (0.0-0.5); EOSINOPHILS % 1.1 % (0.0-7.0); HEMATOCRIT 30.9 % (42.0-52.0); HEMOGLOBIN 9.3 g/dl (14.0-18.0); LYMPHOCYTES # 0.9 10^3/ul (0.8-2.9); LYMPHOCYTES % 5.6 % (15.0-51.0); MEAN CORPUSCULAR HEMOGLOBIN 30.6 pg (29.0-33.0); MEAN CORPUSCULAR HGB CONC 30.1 g/dl (32.0-37.0); MEAN CORPUSCULAR VOLUME 101.6 fl (82.0-101.0); MEAN PLATELET VOLUME 11.8 fl (7.4-10.4); MONOCYTE # 1.4 10^3/ul (0.3-0.9); MONOCYTES % 9.1 % (0.0-11.0); NEUTROPHIL # 12.5 10^3/ul (1.6-7.5); PLATELET COUNT 164 10^3/UL (140-415); RED BLOOD COUNT 3.04 10^6/ul (4.70-6.10); RED CELL DISTRIBUTION WIDTH 17.7 % (11.5-14.5)
[2018-12-25 05:33] LABS: WHITE BLOOD COUNT 15.8 10^3/ul (4.8-10.8)
[2018-12-25 06:01] LABS: ALANINE AMINOTRANSFERASE 10 IU/L (13-69); ALBUMIN 3.7 g/dl (3.3-4.9); ALBUMIN/GLOBULIN RATIO 1.19; ALKALINE PHOSPHATASE 175 IU/L (42-121); ANION GAP 14 (5-13); ASPARTATE AMINO TRANSFERASE 22 IU/L (15-46); BILIRUBIN,INDIRECT 0.4 mg/dl (0-1.1); BILIRUBIN,TOTAL 0.4 mg/dl (0.2-1.3); BLOOD UREA NITROGEN 51 mg/dl (7-20); CARBON DIOXIDE 26 mmol/L (21-31); CHLORIDE 92 mmol/L (97-110); CREATININE 5.77 mg/dl (0.61-1.24); GLUCOSE 112 mg/dl (70-220); SODIUM 132 mmol/L (135-144); TOTAL PROTEIN 6.8 g/dl (6.1-8.1)
[2018-12-25] MEDS: LEVOTHYROXINE 75 MCG TAB PO (07:26)
[2018-12-25] MEDS: INSULIN ASPART [NOVOLOG] 3 ML PEN SC ×4 (09:21→13:00)
[2018-12-25] MEDS: FOLIC ACID 1 MG TAB PO (09:25)
[2018-12-25] MEDS: L ACIDOPHIL/B LACTIS/B LONGUM CAPSULE PO (09:25)
[2018-12-25] MEDS: LINAGLIPTIN 5 MG TABLET PO (09:26)
[2018-12-25] MEDS: CHOLECALCIFEROL 2,000 UNIT CAP PO (09:27)
[2018-12-25] MEDS: DOCUSATE SODIUM 100 MG CAP PO (09:27)
[2018-12-25] MEDS: ISOSORBIDE MONONITRATE(SR)30 MG TAB PO (09:28)
[2018-12-25] MEDS: MULTIVIT/CA CARB/B CMPLX/FA TAB PO (09:28)
[2018-12-25] MEDS: AMIODARONE 200 MG TAB PO (09:28)
[2018-12-25] MEDS: CYANOCOBALAMIN 500 MCG TAB PO (09:28)
[2018-12-25] MEDS: PYRIDOXINE 50 MG TAB PO (09:29)
[2018-12-25] MEDS: METOPROLOL (XL) 50 MG TAB PO (09:29)
[2018-12-25] MEDS: APIXABAN 5 MG TABLET PO (09:29)
[2018-12-25] MEDS: POLYETHYLENE GLYCOL 17 GM PACKET PO (09:30)
[2018-12-25] MEDS: LACTULOSE 30ML CUP PO (09:30)
[2018-12-25] MEDS: BALSAM PERU/CASTOR OIL 60 GM TUBE TOP (09:31)
[2018-12-25] MEDS ORDERED: CEFAZOLIN 2 GM/50 ML (PMX) 50 ML IVPB (19:30)
== END 2018-12-25 16:05 | DRG 548 ==
LOC: MS1 12:40
PROC: 0S9D3ZX Drainage of Left Knee Joint, Percutaneous Approach, Diagnostic (ICD-10-PCS; principal; 2018-12-09)
PROC: 5A1D70Z Performance of Urinary Filtration, Intermittent, Less than 6 Hours Per Day (ICD-10-PCS; 2018-12-09)
PROC: 3E0U3KZ Introduction of Other Diagnostic Substance into Joints, Percutaneous Approach (ICD-10-PCS; 2018-12-13)
PROC: BQ0 Imaging, Non-Axial Lower Bones, Plain Radiography (ICD-10-PCS; 2018-12-13)
PROC: 0Y9D30Z Drainage of Left Upper Leg with Drainage Device, Percutaneous Approach (ICD-10-PCS; 2018-12-16)
PROC: 30233N1 Transfusion of Nonautologous Red Blood Cells into Peripheral Vein, Percutaneous Approach (ICD-10-PCS; 2018-12-20)
DX: M00.062 Staphylococcal arthritis, left knee (principal); N18.6 End stage renal disease; D75.81 Myelofibrosis; I50.22 Chronic systolic (congestive) heart failure; I13.0 Hypertensive heart and chronic kidney disease with heart failure and stage 1 through stage 4 chronic kidney disease, or unspecified chronic kidney disease; N25.81 Secondary hyperparathyroidism of renal origin; M60.052 Infective myositis, left thigh; L03.116 Cellulitis of left lower limb; L76.32 Postprocedural hematoma of skin and subcutaneous tissue following other procedure; B95.61 Methicillin susceptible Staphylococcus aureus infection as the cause of diseases classified elsewhere; D63.8 Anemia in other chronic diseases classified elsewhere; E11.22 Type 2 diabetes mellitus with diabetic chronic kidney disease; E11.21 Type 2 diabetes mellitus with diabetic nephropathy; E87.70 Fluid overload, unspecified; E78.5 Hyperlipidemia, unspecified; E03.9 Hypothyroidism, unspecified; I73.9 Peripheral vascular disease, unspecified; I25.10 Atherosclerotic heart disease of native coronary artery without angina pectoris; I48.0 Paroxysmal atrial fibrillation; I25.2 Old myocardial infarction; K59.00 Constipation, unspecified; M48.00 Spinal stenosis, site unspecified; M10.9 Gout, unspecified; M21.372 Foot drop, left foot; M70.42 Prepatellar bursitis, left knee; Y84.1 Kidney dialysis as the cause of abnormal reaction of the patient, or of later complication, without mention of misadventure at the time of the procedure; Z99.2 Dependence on renal dialysis; Z95.1 Presence of aortocoronary bypass graft; Z95.5 Presence of coronary angioplasty implant and graft; Z87.891 Personal history of nicotine dependence; Z79.02 Long term (current) use of antithrombotics/antiplatelets; Z79.82 Long term (current) use of aspirin; Z79.4 Long term (current) use of insulin
CPT/HCPCS: 36430; 71045; 73562; 73580; 73700; 75989; 77012; 80048; 80053; 80202; 81001; 82270; 82607; 82728; 82746; 82945; 82962; 83036; 83540; 84100; 84145; 84443; 84560; 85025; 85651; 86140; 86706; 86850; 86900; 86901; 86920; 87040-91; 87070; 87081; 87086; 87102; 87116; 87340; 88104; 89051; 89060; 90935; 93005; 93306; 93970; 97110; 97116; 97162; 97530

== ENCOUNTER 2018-12-25 16:16 | Inpatient (IN) | payer MEDICARE, BC ==
[2018-12-25] MEDS ORDERED: PENDING SANTYL ORDER FOR WOUND CARE XX (16:30)
[2018-12-25] MEDS ORDERED: BISACODYL 10 MG SUPP PR (17:00)
[2018-12-25] MEDS: CEFAZOLIN 2 GM/50 ML (PMX) 50 ML IVPB ×2 (17:00→18:45)
[2018-12-25] MEDS ORDERED: ONDANSETRON 4 MG INJ IV (17:30)
[2018-12-25] MEDS ORDERED: NITROGLYCERIN (SL) 0.4 MG TAB SL (17:30)
[2018-12-25] MEDS ORDERED: NACL 0.9% 3 ML SYG IV (17:30)
[2018-12-25] MEDS ORDERED: MANNITOL 25% 50 ML INJ IV* (17:30)
[2018-12-25] MEDS ORDERED: DIAZEPAM 5 MG TAB PO (17:30)
[2018-12-25] MEDS ORDERED: HEPARIN 1000 UNITS/ML 10 ML INJ HE (17:30)
[2018-12-25] MEDS ORDERED: HYDROCODONE/APAP (5/325) TAB PO (17:30)
[2018-12-25] MEDS: INSULIN ASPART [NOVOLOG] 3 ML PEN SC ×3 (17:35→21:00)
[2018-12-25] MEDS ORDERED: GLUCAGON 1 MG INJ IM (18:30)
[2018-12-25] MEDS ORDERED: DEXTROSE 50% 50 ML SYRINGE IV ×2 (18:30)
[2018-12-25] MEDS ORDERED: GLUCOSE GEL 15 GRAM TUBE PO ×2 (18:30)
[2018-12-25] MEDS ORDERED: GLUCOSE GEL 15 GRAM TUBE BUCCAL (18:30)
[2018-12-25] MEDS: ALBUMIN HUMAN 25% 50 ML IV (18:40)
[2018-12-25] MEDS ORDERED: MANNITOL 25% 50 ML IV (19:00)
[2018-12-25] MEDS: ACCU-CHEK XX (21:00)
[2018-12-25] MEDS: ATORVASTATIN 20 MG TAB PO (21:59)
[2018-12-25] MEDS: APIXABAN 5 MG TABLET PO (21:59)
[2018-12-25] MEDS: L ACIDOPHIL/B LACTIS/B LONGUM CAPSULE PO (21:59)
[2018-12-25] MEDS: METOPROLOL (XL) 50 MG TAB PO (22:00)
[2018-12-25] MEDS: INSULIN GLARGINE [LANTus] (100 UNITS/ML) SYG SC (22:06)
[2018-12-25] MEDS: SPECIAL NON-STANDARD MEDICATION (CHEMO) PO (22:34)
[2018-12-26] MEDS: ACCU-CHEK XX ×5 (02:00→21:27)
[2018-12-26] MEDS: LEVOTHYROXINE 75 MCG TAB PO (06:48)
[2018-12-26 07:34] LABS: ADD MAN DIFF? NO
[2018-12-26] MEDS: INSULIN ASPART [NOVOLOG] 3 ML PEN SC ×7 (07:46→20:23)
[2018-12-26 07:51] LABS: BASOPHIL # 0.1 10^3/ul (0.0-0.1); BASOPHILS % 0.3 % (0.0-2.0); EOSINOPHILS # 0.2 10^3/ul (0.0-0.5); EOSINOPHILS % 1.1 % (0.0-7.0); HEMATOCRIT 31.9 % (42.0-52.0); HEMOGLOBIN 9.8 g/dl (14.0-18.0); LYMPHOCYTES # 0.9 10^3/ul (0.8-2.9); LYMPHOCYTES % 5.8 % (15.0-51.0); MEAN CORPUSCULAR HEMOGLOBIN 31.1 pg (29.0-33.0); MEAN CORPUSCULAR HGB CONC 30.7 g/dl (32.0-37.0); MEAN CORPUSCULAR VOLUME 101.3 fl (82.0-101.0); MEAN PLATELET VOLUME 12.7 fl (7.4-10.4); MONOCYTE # 1.4 10^3/ul (0.3-0.9); MONOCYTES % 9.3 % (0.0-11.0); NEUTROPHIL # 11.5 10^3/ul (1.6-7.5); PLATELET COUNT 177 10^3/UL (140-415); RED BLOOD COUNT 3.15 10^6/ul (4.70-6.10); RED CELL DISTRIBUTION WIDTH 17.8 % (11.5-14.5)
[2018-12-26 07:51] LABS: WHITE BLOOD COUNT 14.6 10^3/ul (4.8-10.8)
[2018-12-26 08:11] LABS: ALANINE AMINOTRANSFERASE 11 IU/L (13-69); ALBUMIN 4.1 g/dl (3.3-4.9); ALBUMIN/GLOBULIN RATIO 1.24; ALKALINE PHOSPHATASE 179 IU/L (42-121); ANION GAP 12 (5-13); ASPARTATE AMINO TRANSFERASE 22 IU/L (15-46); BILIRUBIN,INDIRECT 0.5 mg/dl (0-1.1); BILIRUBIN,TOTAL 0.5 mg/dl (0.2-1.3); BLOOD UREA NITROGEN 35 mg/dl (7-20); CALCIUM 9.3 mg/dl (8.4-10.2); CARBON DIOXIDE 29 mmol/L (21-31); CHLORIDE 91 mmol/L (97-110); CREATININE 4.53 mg/dl (0.61-1.24); GLUCOSE 121 mg/dl (70-220); SODIUM 132 mmol/L (135-144); TOTAL PROTEIN 7.4 g/dl (6.1-8.1)
[2018-12-26] MEDS: BALSAM PERU/CASTOR OIL 60 GM TUBE TOP (08:16)
[2018-12-26] MEDS: POLYETHYLENE GLYCOL 17 GM PACKET PO (08:16)
[2018-12-26] MEDS: DOCUSATE SODIUM 100 MG CAP PO (08:19)
[2018-12-26] MEDS: ASPIRIN 81 MG TAB PO (08:19)
[2018-12-26] MEDS: MULTIVIT/CA CARB/B CMPLX/FA TAB PO (08:19)
[2018-12-26] MEDS: L ACIDOPHIL/B LACTIS/B LONGUM CAPSULE PO ×2 (08:19→20:20)
[2018-12-26] MEDS: LINAGLIPTIN 5 MG TABLET PO (08:19)
[2018-12-26] MEDS: FOLIC ACID 1 MG TAB PO (08:19)
[2018-12-26] MEDS: CLOPIDOGREL 75 MG TAB PO (08:19)
[2018-12-26] MEDS: PYRIDOXINE 50 MG TAB PO (08:19)
[2018-12-26] MEDS: CHOLECALCIFEROL 2,000 UNIT CAP PO (08:20)
[2018-12-26] MEDS: APIXABAN 5 MG TABLET PO ×2 (08:20→20:21)
[2018-12-26] MEDS: CYANOCOBALAMIN 500 MCG TAB PO (08:20)
[2018-12-26] MEDS: AMIODARONE 200 MG TAB PO (08:26)
[2018-12-26] MEDS: METOPROLOL (XL) 50 MG TAB PO ×2 (08:28→20:22)
[2018-12-26] MEDS: ISOSORBIDE MONONITRATE(SR)30 MG TAB PO (09:00)
[2018-12-26] MEDS: LACTULOSE 30ML CUP PO (13:39)
[2018-12-26] MEDS: EPOETIN ALFA-EPBX (ESRD) 10,000 UNIT/ML VIAL SC (17:30)
[2018-12-26] MEDS: SEVELAMER CARBONATE 800 MG TABLET PO (17:30)
[2018-12-26] MEDS: INSULIN GLARGINE [LANTus] (100 UNITS/ML) SYG SC (20:18)
[2018-12-26] MEDS: SPECIAL NON-STANDARD MEDICATION (CHEMO) PO (20:19)
[2018-12-26] MEDS: ATORVASTATIN 20 MG TAB PO (20:20)
[2018-12-27] MEDS: ACCU-CHEK XX ×5 (02:00→21:32)
[2018-12-27] MEDS: LEVOTHYROXINE 75 MCG TAB PO (06:27)
[2018-12-27 06:47] LABS: ADD MAN DIFF? NO
[2018-12-27 06:51] LABS: WHITE BLOOD COUNT 13.9 10^3/ul (4.8-10.8)
[2018-12-27 06:51] LABS: BASOPHILS % 0.2 % (0.0-2.0); EOSINOPHILS # 0.2 10^3/ul (0.0-0.5); EOSINOPHILS % 1.4 % (0.0-7.0); HEMOGLOBIN 9.9 g/dl (14.0-18.0); LYMPHOCYTES # 1.2 10^3/ul (0.8-2.9); LYMPHOCYTES % 8.4 % (15.0-51.0); MEAN CORPUSCULAR HEMOGLOBIN 31.1 pg (29.0-33.0); MEAN CORPUSCULAR HGB CONC 30.9 g/dl (32.0-37.0); MEAN CORPUSCULAR VOLUME 100.6 fl (82.0-101.0); MONOCYTE # 1.2 10^3/ul (0.3-0.9); MONOCYTES % 8.2 % (0.0-11.0); NEUTROPHIL # 10.9 10^3/ul (1.6-7.5); NEUTROPHILS % 77.9 % (39.0-77.0); PLATELET COUNT 179 10^3/UL (140-415); RED BLOOD COUNT 3.18 10^6/ul (4.70-6.10); RED CELL DISTRIBUTION WIDTH 17.5 % (11.5-14.5)
[2018-12-27 07:30] LABS: ALANINE AMINOTRANSFERASE 10 IU/L (13-69); ALBUMIN 4.2 g/dl (3.3-4.9); ALBUMIN/GLOBULIN RATIO 1.27; ALKALINE PHOSPHATASE 176 IU/L (42-121); ANION GAP 14 (5-13); ASPARTATE AMINO TRANSFERASE 23 IU/L (15-46); BILIRUBIN,INDIRECT 0.4 mg/dl (0-1.1); BILIRUBIN,TOTAL 0.4 mg/dl (0.2-1.3); BLOOD UREA NITROGEN 57 mg/dl (7-20); CALCIUM 9.7 mg/dl (8.4-10.2); CARBON DIOXIDE 27 mmol/L (21-31); CHLORIDE 89 mmol/L (97-110); CREATININE 6.51 mg/dl (0.61-1.24); GLUCOSE 87 mg/dl (70-220); SODIUM 130 mmol/L (135-144); TOTAL PROTEIN 7.5 g/dl (6.1-8.1)
[2018-12-27] MEDS: INSULIN ASPART [NOVOLOG] 3 ML PEN SC ×7 (07:35→20:37)
[2018-12-27 07:41] LABS: POTASSIUM 5.6 mmol/L (3.5-5.1)
[2018-12-27] MEDS: LINAGLIPTIN 5 MG TABLET PO (07:59)
[2018-12-27] MEDS: METOPROLOL (XL) 50 MG TAB PO ×2 (09:00→20:37)
[2018-12-27] MEDS: ASPIRIN 81 MG TAB PO (09:00)
[2018-12-27] MEDS: CYANOCOBALAMIN 500 MCG TAB PO (09:15)
[2018-12-27] MEDS: L ACIDOPHIL/B LACTIS/B LONGUM CAPSULE PO ×2 (09:15→20:33)
[2018-12-27] MEDS: FOLIC ACID 1 MG TAB PO (09:15)
[2018-12-27] MEDS: MULTIVIT/CA CARB/B CMPLX/FA TAB PO (09:15)
[2018-12-27] MEDS: ISOSORBIDE MONONITRATE(SR)30 MG TAB PO (09:15)
[2018-12-27] MEDS: CLOPIDOGREL 75 MG TAB PO (09:15)
[2018-12-27] MEDS: AMIODARONE 200 MG TAB PO (09:16)
[2018-12-27] MEDS: ZINC SULFATE 220 MG CAP PO (09:16)
[2018-12-27] MEDS: DOCUSATE SODIUM 100 MG CAP PO (09:16)
[2018-12-27] MEDS: CHOLECALCIFEROL 2,000 UNIT CAP PO (09:17)
[2018-12-27] MEDS: PYRIDOXINE 50 MG TAB PO (09:17)
[2018-12-27] MEDS: APIXABAN 5 MG TABLET PO ×2 (09:18→20:34)
[2018-12-27] MEDS: POLYETHYLENE GLYCOL 17 GM PACKET PO (09:18)
[2018-12-27] MEDS: BALSAM PERU/CASTOR OIL 60 GM TUBE TOP (09:27)
[2018-12-27] MEDS: LACTULOSE 30ML CUP PO (09:30)
[2018-12-27] MEDS: SEVELAMER CARBONATE 800 MG TABLET PO (17:05)
[2018-12-27] MEDS: SPECIAL NON-STANDARD MEDICATION (CHEMO) PO (20:31)
[2018-12-27] MEDS: INSULIN GLARGINE [LANTus] (100 UNITS/ML) SYG SC (20:32)
[2018-12-27] MEDS: ATORVASTATIN 20 MG TAB PO (20:35)
[2018-12-28] MEDS: ACCU-CHEK XX ×5 (02:00→21:00)
[2018-12-28] MEDS: LEVOTHYROXINE 75 MCG TAB PO (06:14)
[2018-12-28 06:32] LABS: ADD MAN DIFF? NO
[2018-12-28 06:37] LABS: BASOPHILS % 0.3 % (0.0-2.0); EOSINOPHILS # 0.2 10^3/ul (0.0-0.5); EOSINOPHILS % 1.4 % (0.0-7.0); HEMATOCRIT 31.8 % (42.0-52.0); HEMOGLOBIN 9.4 g/dl (14.0-18.0); LYMPHOCYTES # 0.8 10^3/ul (0.8-2.9); LYMPHOCYTES % 7.1 % (15.0-51.0); MEAN CORPUSCULAR HEMOGLOBIN 30.1 pg (29.0-33.0); MEAN CORPUSCULAR HGB CONC 29.6 g/dl (32.0-37.0); MEAN CORPUSCULAR VOLUME 101.9 fl (82.0-101.0); MEAN PLATELET VOLUME 12.6 fl (7.4-10.4); MONOCYTE # 1.1 10^3/ul (0.3-0.9); MONOCYTES % 10.5 % (0.0-11.0); NEUTROPHIL # 8.1 10^3/ul (1.6-7.5); NEUTROPHILS % 77.4 % (39.0-77.0); PLATELET COUNT 192 10^3/UL (140-415); RED BLOOD COUNT 3.12 10^6/ul (4.70-6.10)
[2018-12-28 06:37] LABS: WHITE BLOOD COUNT 10.5 10^3/ul (4.8-10.8)
[2018-12-28 07:07] LABS: ANION GAP 10 (5-13); BLOOD UREA NITROGEN 33 mg/dl (7-20); CALCIUM 9.3 mg/dl (8.4-10.2); CARBON DIOXIDE 31 mmol/L (21-31); CHLORIDE 96 mmol/L (97-110); CREATININE 4.41 mg/dl (0.61-1.24); GLUCOSE 122 mg/dl (70-220); PHOSPHORUS 3.7 mg/dl (2.5-4.9); POTASSIUM 4.7 mmol/L (3.5-5.1); SODIUM 137 mmol/L (135-144)
[2018-12-28] MEDS: INSULIN ASPART [NOVOLOG] 3 ML PEN SC ×7 (07:35→21:00)
[2018-12-28] MEDS: LINAGLIPTIN 5 MG TABLET PO (07:48)
[2018-12-28] MEDS: L ACIDOPHIL/B LACTIS/B LONGUM CAPSULE PO ×2 (08:54→21:05)
[2018-12-28] MEDS: DOCUSATE SODIUM 100 MG CAP PO (08:54)
[2018-12-28] MEDS: ISOSORBIDE MONONITRATE(SR)30 MG TAB PO (08:54)
[2018-12-28] MEDS: POLYETHYLENE GLYCOL 17 GM PACKET PO (08:54)
[2018-12-28] MEDS: MULTIVIT/CA CARB/B CMPLX/FA TAB PO (08:54)
[2018-12-28] MEDS: AMIODARONE 200 MG TAB PO (08:55)
[2018-12-28] MEDS: FOLIC ACID 1 MG TAB PO (08:55)
[2018-12-28] MEDS: CHOLECALCIFEROL 2,000 UNIT CAP PO (08:55)
[2018-12-28] MEDS: METOPROLOL (XL) 50 MG TAB PO ×2 (08:55→21:05)
[2018-12-28] MEDS: ZINC SULFATE 220 MG CAP PO (08:55)
[2018-12-28] MEDS: CLOPIDOGREL 75 MG TAB PO (08:56)
[2018-12-28] MEDS: ASPIRIN 81 MG TAB PO (08:56)
[2018-12-28] MEDS: CYANOCOBALAMIN 500 MCG TAB PO (08:56)
[2018-12-28] MEDS: PYRIDOXINE 50 MG TAB PO (08:56)
[2018-12-28] MEDS: APIXABAN 5 MG TABLET PO ×2 (08:56→21:04)
[2018-12-28] MEDS: CEFAZOLIN 2 GM/50 ML (PMX) 50 ML IVPB (09:00)
[2018-12-28] MEDS: BALSAM PERU/CASTOR OIL 60 GM TUBE TOP (09:06)
[2018-12-28 17:01] LABS: ADD UMIC YES; UR ASCORBIC ACID NEGATIVE (NEGATIVE); UR BACTERIA FEW /HPF (NONE SEEN); UR BILIRUBIN (Dip) NEGATIVE (NEGATIVE); UR BLOOD (Dip) 3+ mg/dL (NEGATIVE); UR CLARITY CLOUDY (CLEAR); UR COLOR AMBER (YELLOW); UR GLUCOSE (Dip) NEGATIVE (NEGATIVE); UR KETONES (Dip) TRACE mg/dL (NEGATIVE); UR LEUKOCYTE ESTERASE (Dip) 2+ Leu/ul (NEGATIVE); UR NITRITE (Dip) NEGATIVE (NEGATIVE); UR RBC 4 /HPF (0-5); UR SPECIFIC GRAVITY (Dip) 1.019 (1.003-1.030); UR TOTAL PROTEIN (Dip) 2+ mg/dl (NEGATIVE); UR UROBILINOGEN (Dip) NEGATIVE (NEGATIVE); UR WBC 18 /HPF (0-5)
[2018-12-28] MEDS: SEVELAMER CARBONATE 800 MG TABLET PO (17:31)
[2018-12-28] MEDS: EPOETIN ALFA-EPBX (ESRD) 10,000 UNIT/ML VIAL SC (17:32)
[2018-12-28] MEDS: ZOLPIDEM 5 MG TAB PO (21:04)
[2018-12-28] MEDS: ATORVASTATIN 20 MG TAB PO (21:05)
[2018-12-28] MEDS: INSULIN GLARGINE [LANTus] (100 UNITS/ML) SYG SC (21:12)
[2018-12-28] MEDS: SPECIAL NON-STANDARD MEDICATION (CHEMO) PO (21:13)
[2018-12-29] MEDS: ACCU-CHEK XX ×5 (02:00→21:34)
[2018-12-29] MEDS: LEVOTHYROXINE 75 MCG TAB PO (06:33)
[2018-12-29] MEDS: INSULIN ASPART [NOVOLOG] 3 ML PEN SC ×7 (07:35→21:00)
[2018-12-29] MEDS: LINAGLIPTIN 5 MG TABLET PO (07:43)
[2018-12-29] MEDS: LACTULOSE 30ML CUP PO (08:27)
[2018-12-29] MEDS: POLYETHYLENE GLYCOL 17 GM PACKET PO (08:27)
[2018-12-29] MEDS: PYRIDOXINE 50 MG TAB PO (08:28)
[2018-12-29] MEDS: ISOSORBIDE MONONITRATE(SR)30 MG TAB PO (08:28)
[2018-12-29] MEDS: METOPROLOL (XL) 50 MG TAB PO (08:28)
[2018-12-29] MEDS: ASPIRIN 81 MG TAB PO (08:29)
[2018-12-29] MEDS: FOLIC ACID 1 MG TAB PO (08:29)
[2018-12-29] MEDS: L ACIDOPHIL/B LACTIS/B LONGUM CAPSULE PO ×2 (08:29→21:32)
[2018-12-29] MEDS: ZINC SULFATE 220 MG CAP PO (08:29)
[2018-12-29] MEDS: MULTIVIT/CA CARB/B CMPLX/FA TAB PO (08:29)
[2018-12-29] MEDS: CYANOCOBALAMIN 500 MCG TAB PO (08:29)
[2018-12-29] MEDS: DOCUSATE SODIUM 100 MG CAP PO (08:29)
[2018-12-29] MEDS: AMIODARONE 200 MG TAB PO (08:29)
[2018-12-29] MEDS: CLOPIDOGREL 75 MG TAB PO (08:30)
[2018-12-29] MEDS: APIXABAN 5 MG TABLET PO ×2 (08:30→21:32)
[2018-12-29] MEDS: CHOLECALCIFEROL 2,000 UNIT CAP PO (08:30)
[2018-12-29] MEDS: BALSAM PERU/CASTOR OIL 60 GM TUBE TOP ×2 (08:35→21:51)
[2018-12-29] MEDS: SEVELAMER CARBONATE 800 MG TABLET PO (17:21)
[2018-12-29] MEDS: ATORVASTATIN 20 MG TAB PO (21:33)
[2018-12-29] MEDS: INSULIN GLARGINE [LANTus] (100 UNITS/ML) SYG SC (21:49)
[2018-12-29] MEDS: SPECIAL NON-STANDARD MEDICATION (CHEMO) PO (21:50)
[2018-12-30] MEDS: METOPROLOL (XL) 50 MG TAB PO ×3 (00:18→20:55)
[2018-12-30] MEDS: ACCU-CHEK XX ×5 (02:00→20:58)
[2018-12-30] MEDS: LEVOTHYROXINE 75 MCG TAB PO (06:30)
[2018-12-30 06:57] LABS: ADD MAN DIFF? NO
[2018-12-30 07:01] LABS: BASOPHILS % 0.2 % (0.0-2.0); EOSINOPHILS # 0.2 10^3/ul (0.0-0.5); EOSINOPHILS % 2.5 % (0.0-7.0); HEMATOCRIT 29.4 % (42.0-52.0); HEMOGLOBIN 8.7 g/dl (14.0-18.0); LYMPHOCYTES # 0.6 10^3/ul (0.8-2.9); LYMPHOCYTES % 6.9 % (15.0-51.0); MEAN CORPUSCULAR HEMOGLOBIN 30.6 pg (29.0-33.0); MEAN CORPUSCULAR HGB CONC 29.6 g/dl (32.0-37.0); MEAN CORPUSCULAR VOLUME 103.5 fl (82.0-101.0); MEAN PLATELET VOLUME 12.1 fl (7.4-10.4); MONOCYTE # 0.8 10^3/ul (0.3-0.9); MONOCYTES % 8.8 % (0.0-11.0); NEUTROPHIL # 7.1 10^3/ul (1.6-7.5); NEUTROPHILS % 78.6 % (39.0-77.0); PLATELET COUNT 206 10^3/UL (140-415); RED BLOOD COUNT 2.84 10^6/ul (4.70-6.10); RED CELL DISTRIBUTION WIDTH 18.1 % (11.5-14.5)
[2018-12-30 07:28] LABS: ANION GAP 10 (5-13); BLOOD UREA NITROGEN 29 mg/dl (7-20); CALCIUM 8.9 mg/dl (8.4-10.2); CARBON DIOXIDE 29 mmol/L (21-31); CHLORIDE 99 mmol/L (97-110); GLUCOSE 113 mg/dl (70-220); PHOSPHORUS 3.6 mg/dl (2.5-4.9); POTASSIUM 4.3 mmol/L (3.5-5.1); SODIUM 138 mmol/L (135-144)
[2018-12-30] MEDS: INSULIN ASPART [NOVOLOG] 3 ML PEN SC ×7 (07:35→20:57)
[2018-12-30] MEDS: LINAGLIPTIN 5 MG TABLET PO (08:16)
[2018-12-30] MEDS: ZINC SULFATE 220 MG CAP PO (08:28)
[2018-12-30] MEDS: FOLIC ACID 1 MG TAB PO (08:28)
[2018-12-30] MEDS: PYRIDOXINE 50 MG TAB PO (08:29)
[2018-12-30] MEDS: CHOLECALCIFEROL 2,000 UNIT CAP PO (08:29)
[2018-12-30] MEDS: L ACIDOPHIL/B LACTIS/B LONGUM CAPSULE PO ×2 (08:30→20:51)
[2018-12-30] MEDS: CYANOCOBALAMIN 500 MCG TAB PO (08:31)
[2018-12-30] MEDS: DOCUSATE SODIUM 100 MG CAP PO (08:31)
[2018-12-30] MEDS: APIXABAN 5 MG TABLET PO ×2 (08:32→20:51)
[2018-12-30] MEDS: MULTIVIT/CA CARB/B CMPLX/FA TAB PO (08:32)
[2018-12-30] MEDS: POLYETHYLENE GLYCOL 17 GM PACKET PO (08:33)
[2018-12-30] MEDS: AMIODARONE 200 MG TAB PO (08:41)
[2018-12-30] MEDS: ISOSORBIDE MONONITRATE(SR)30 MG TAB PO (08:44)
[2018-12-30] MEDS: BALSAM PERU/CASTOR OIL 60 GM TUBE TOP ×2 (08:54→23:02)
[2018-12-30] MEDS: CEFAZOLIN 1 GM/50 ML (PMX) 50 ML IVPB (14:08)
[2018-12-30] MEDS ORDERED: CEFAZOLIN 1 GM/50 ML (PMX) 50 ML IVPB (17:00)
[2018-12-30] MEDS: EPOETIN ALFA-EPBX (ESRD) 10,000 UNIT/ML VIAL SC (17:28)
[2018-12-30] MEDS: SEVELAMER CARBONATE 800 MG TABLET PO (17:30)
[2018-12-30] MEDS: ATORVASTATIN 20 MG TAB PO (20:51)
[2018-12-30] MEDS: ZOLPIDEM 5 MG TAB PO (20:51)
[2018-12-30] MEDS: SPECIAL NON-STANDARD MEDICATION (CHEMO) PO (20:56)
[2018-12-30] MEDS: INSULIN GLARGINE [LANTus] (100 UNITS/ML) SYG SC (20:57)
[2018-12-31] MEDS: ACCU-CHEK XX ×5 (02:00→21:00)
[2018-12-31] MEDS: LEVOTHYROXINE 75 MCG TAB PO (06:17)
[2018-12-31] MEDS: INSULIN ASPART [NOVOLOG] 3 ML PEN SC ×7 (07:35→21:00)
[2018-12-31] MEDS: LINAGLIPTIN 5 MG TABLET PO (08:22)
[2018-12-31] MEDS: CYANOCOBALAMIN 500 MCG TAB PO (08:23)
[2018-12-31] MEDS: MULTIVIT/CA CARB/B CMPLX/FA TAB PO (08:23)
[2018-12-31] MEDS: APIXABAN 5 MG TABLET PO ×2 (08:24→22:32)
[2018-12-31] MEDS: ZINC SULFATE 220 MG CAP PO (08:24)
[2018-12-31] MEDS: L ACIDOPHIL/B LACTIS/B LONGUM CAPSULE PO ×2 (08:24→22:34)
[2018-12-31] MEDS: FOLIC ACID 1 MG TAB PO (08:24)
[2018-12-31] MEDS: PYRIDOXINE 50 MG TAB PO (08:24)
[2018-12-31] MEDS: CHOLECALCIFEROL 2,000 UNIT CAP PO (08:24)
[2018-12-31] MEDS: DOCUSATE SODIUM 100 MG CAP PO (08:24)
[2018-12-31] MEDS: AMIODARONE 200 MG TAB PO (08:25)
[2018-12-31] MEDS: METOPROLOL (XL) 50 MG TAB PO ×2 (08:25→22:34)
[2018-12-31] MEDS: POLYETHYLENE GLYCOL 17 GM PACKET PO (08:26)
[2018-12-31] MEDS: ISOSORBIDE MONONITRATE(SR)30 MG TAB PO (08:26)
[2018-12-31] MEDS: BALSAM PERU/CASTOR OIL 60 GM TUBE TOP ×2 (08:34→22:46)
[2018-12-31] MEDS: SEVELAMER CARBONATE 800 MG TABLET PO (17:20)
[2018-12-31] MEDS: SPECIAL NON-STANDARD MEDICATION (CHEMO) PO (22:31)
[2018-12-31] MEDS: INSULIN GLARGINE [LANTus] (100 UNITS/ML) SYG SC (22:32)
[2018-12-31] MEDS: ATORVASTATIN 20 MG TAB PO (22:34)
[2018-12-31] MEDS: CEFAZOLIN 1 GM/50 ML (PMX) 50 ML IVPB (22:39)
[2019-01-01] MEDS: ACCU-CHEK XX ×5 (02:00→20:39)
[2019-01-01] MEDS: LEVOTHYROXINE 75 MCG TAB PO (06:38)
[2019-01-01] MEDS: INSULIN ASPART [NOVOLOG] 3 ML PEN SC ×7 (07:35→20:39)
[2019-01-01] MEDS: FOLIC ACID 1 MG TAB PO (08:21)
[2019-01-01] MEDS: DOCUSATE SODIUM 100 MG CAP PO (08:21)
[2019-01-01] MEDS: CYANOCOBALAMIN 500 MCG TAB PO (08:21)
[2019-01-01] MEDS: PYRIDOXINE 50 MG TAB PO (08:22)
[2019-01-01] MEDS: LINAGLIPTIN 5 MG TABLET PO (08:22)
[2019-01-01] MEDS: CHOLECALCIFEROL 2,000 UNIT CAP PO (08:22)
[2019-01-01] MEDS: L ACIDOPHIL/B LACTIS/B LONGUM CAPSULE PO ×2 (08:22→20:27)
[2019-01-01] MEDS: MULTIVIT/CA CARB/B CMPLX/FA TAB PO (08:23)
[2019-01-01] MEDS: AMIODARONE 200 MG TAB PO (08:28)
[2019-01-01] MEDS: APIXABAN 5 MG TABLET PO ×2 (08:28→20:27)
[2019-01-01] MEDS: METOPROLOL (XL) 50 MG TAB PO ×2 (08:28→20:28)
[2019-01-01] MEDS: ZINC SULFATE 220 MG CAP PO (08:28)
[2019-01-01] MEDS: ISOSORBIDE MONONITRATE(SR)30 MG TAB PO (08:29)
[2019-01-01] MEDS: POLYETHYLENE GLYCOL 17 GM PACKET PO (08:29)
[2019-01-01] MEDS: BALSAM PERU/CASTOR OIL 60 GM TUBE TOP ×2 (08:30→20:30)
[2019-01-01] MEDS: SEVELAMER CARBONATE 800 MG TABLET PO (17:16)
[2019-01-01] MEDS: CEFAZOLIN 1 GM/50 ML (PMX) 50 ML IVPB (20:24)
[2019-01-01] MEDS: SPECIAL NON-STANDARD MEDICATION (CHEMO) PO (20:26)
[2019-01-01] MEDS: ATORVASTATIN 20 MG TAB PO (20:28)
[2019-01-01] MEDS: INSULIN GLARGINE [LANTus] (100 UNITS/ML) SYG SC (20:39)
[2019-01-02] MEDS: ACCU-CHEK XX ×5 (02:00→20:56)
[2019-01-02] MEDS: LEVOTHYROXINE 75 MCG TAB PO (06:32)
[2019-01-02 07:25] LABS: ADD MAN DIFF? NO
[2019-01-02 07:31] LABS: WHITE BLOOD COUNT 11.2 10^3/ul (4.8-10.8)
[2019-01-02 07:31] LABS: BASOPHILS % 0.3 % (0.0-2.0); EOSINOPHILS # 0.4 10^3/ul (0.0-0.5); EOSINOPHILS % 3.3 % (0.0-7.0); HEMATOCRIT 28.6 % (42.0-52.0); HEMOGLOBIN 8.4 g/dl (14.0-18.0); LYMPHOCYTES # 0.6 10^3/ul (0.8-2.9); LYMPHOCYTES % 5.7 % (15.0-51.0); MEAN CORPUSCULAR HEMOGLOBIN 30.8 pg (29.0-33.0); MEAN CORPUSCULAR HGB CONC 29.4 g/dl (32.0-37.0); MEAN CORPUSCULAR VOLUME 104.8 fl (82.0-101.0); MEAN PLATELET VOLUME 12.2 fl (7.4-10.4); MONOCYTE # 1.2 10^3/ul (0.3-0.9); MONOCYTES % 10.3 % (0.0-11.0); NEUTROPHIL # 8.6 10^3/ul (1.6-7.5); NEUTROPHILS % 76.9 % (39.0-77.0); PLATELET COUNT 232 10^3/UL (140-415); RED BLOOD COUNT 2.73 10^6/ul (4.70-6.10)
[2019-01-02] MEDS: INSULIN ASPART [NOVOLOG] 3 ML PEN SC ×7 (07:35→21:00)
[2019-01-02] MEDS: LINAGLIPTIN 5 MG TABLET PO (07:48)
[2019-01-02 08:00] LABS: ANION GAP 10 (5-13); BLOOD UREA NITROGEN 53 mg/dl (7-20); CARBON DIOXIDE 29 mmol/L (21-31); CHLORIDE 95 mmol/L (97-110); CREATININE 5.63 mg/dl (0.61-1.24); GLUCOSE 110 mg/dl (70-220); SODIUM 134 mmol/L (135-144)
[2019-01-02] MEDS: POLYETHYLENE GLYCOL 17 GM PACKET PO (08:34)
[2019-01-02] MEDS: DOCUSATE SODIUM 100 MG CAP PO (08:34)
[2019-01-02] MEDS: L ACIDOPHIL/B LACTIS/B LONGUM CAPSULE PO ×2 (08:35→20:54)
[2019-01-02] MEDS: MULTIVIT/CA CARB/B CMPLX/FA TAB PO (08:35)
[2019-01-02] MEDS: ZINC SULFATE 220 MG CAP PO (08:35)
[2019-01-02] MEDS: AMIODARONE 200 MG TAB PO (08:35)
[2019-01-02] MEDS: ISOSORBIDE MONONITRATE(SR)30 MG TAB PO (08:35)
[2019-01-02] MEDS: FOLIC ACID 1 MG TAB PO (08:35)
[2019-01-02] MEDS: CYANOCOBALAMIN 500 MCG TAB PO (08:36)
[2019-01-02] MEDS: CHOLECALCIFEROL 2,000 UNIT CAP PO (08:36)
[2019-01-02] MEDS: APIXABAN 5 MG TABLET PO ×2 (08:36→20:54)
[2019-01-02] MEDS: METOPROLOL (XL) 50 MG TAB PO ×2 (08:36→21:00)
[2019-01-02] MEDS: PYRIDOXINE 50 MG TAB PO (08:36)
[2019-01-02] MEDS: BALSAM PERU/CASTOR OIL 60 GM TUBE TOP ×2 (08:37→21:04)
[2019-01-02] MEDS: SEVELAMER CARBONATE 800 MG TABLET PO (17:41)
[2019-01-02] MEDS: EPOETIN ALFA-EPBX (ESRD) 10,000 UNIT/ML VIAL SC (17:42)
[2019-01-02] MEDS: ATORVASTATIN 20 MG TAB PO (20:54)
[2019-01-02] MEDS: INSULIN GLARGINE [LANTus] (100 UNITS/ML) SYG SC (21:00)
[2019-01-02] MEDS: SPECIAL NON-STANDARD MEDICATION (CHEMO) PO (21:00)
[2019-01-03] MEDS: ACCU-CHEK XX ×5 (02:00→21:00)
[2019-01-03] MEDS: ZOLPIDEM 5 MG TAB PO ×2 (02:34→20:36)
[2019-01-03] MEDS: CEFAZOLIN 1 GM/50 ML (PMX) 50 ML IVPB ×2 (02:36→20:32)
[2019-01-03] MEDS: LEVOTHYROXINE 75 MCG TAB PO (05:46)
[2019-01-03] MEDS: INSULIN ASPART [NOVOLOG] 3 ML PEN SC ×7 (07:35→21:30)
[2019-01-03] MEDS: LINAGLIPTIN 5 MG TABLET PO (08:04)
[2019-01-03] MEDS: DOCUSATE SODIUM 100 MG CAP PO (08:40)
[2019-01-03] MEDS: ISOSORBIDE MONONITRATE(SR)30 MG TAB PO (08:41)
[2019-01-03] MEDS: MULTIVIT/CA CARB/B CMPLX/FA TAB PO (08:41)
[2019-01-03] MEDS: FOLIC ACID 1 MG TAB PO (08:41)
[2019-01-03] MEDS: APIXABAN 5 MG TABLET PO ×2 (08:41→20:36)
[2019-01-03] MEDS: ZINC SULFATE 220 MG CAP PO (08:42)
[2019-01-03] MEDS: AMIODARONE 200 MG TAB PO (08:42)
[2019-01-03] MEDS: L ACIDOPHIL/B LACTIS/B LONGUM CAPSULE PO ×2 (08:42→20:35)
[2019-01-03] MEDS: CYANOCOBALAMIN 500 MCG TAB PO (08:42)
[2019-01-03] MEDS: POLYETHYLENE GLYCOL 17 GM PACKET PO (08:43)
[2019-01-03] MEDS: CHOLECALCIFEROL 2,000 UNIT CAP PO (08:43)
[2019-01-03] MEDS: PYRIDOXINE 50 MG TAB PO (08:43)
[2019-01-03] MEDS: METOPROLOL (XL) 50 MG TAB PO ×2 (08:43→20:35)
[2019-01-03] MEDS: BALSAM PERU/CASTOR OIL 60 GM TUBE TOP ×2 (08:44→21:30)
[2019-01-03] MEDS: SEVELAMER CARBONATE 800 MG TABLET PO (17:41)
[2019-01-03] MEDS: ATORVASTATIN 20 MG TAB PO (20:36)
[2019-01-03] MEDS: SPECIAL NON-STANDARD MEDICATION (CHEMO) PO (21:29)
[2019-01-03] MEDS: INSULIN GLARGINE [LANTus] (100 UNITS/ML) SYG SC (21:29)
[2019-01-04] MEDS: ACCU-CHEK XX ×5 (02:00→21:55)
[2019-01-04 06:19] LABS: ADD MAN DIFF? NO
[2019-01-04 06:26] LABS: BASOPHILS % 0.3 % (0.0-2.0); EOSINOPHILS # 0.3 10^3/ul (0.0-0.5); EOSINOPHILS % 3.1 % (0.0-7.0); HEMATOCRIT 26.8 % (42.0-52.0); LYMPHOCYTES # 0.9 10^3/ul (0.8-2.9); LYMPHOCYTES % 10.2 % (15.0-51.0); MEAN CORPUSCULAR HEMOGLOBIN 31.1 pg (29.0-33.0); MEAN CORPUSCULAR HGB CONC 29.9 g/dl (32.0-37.0); MEAN CORPUSCULAR VOLUME 104.3 fl (82.0-101.0); MEAN PLATELET VOLUME 11.3 fl (7.4-10.4); MONOCYTE # 0.8 10^3/ul (0.3-0.9); MONOCYTES % 9.3 % (0.0-11.0); NEUTROPHIL # 6.7 10^3/ul (1.6-7.5); NEUTROPHILS % 74.5 % (39.0-77.0); PLATELET COUNT 236 10^3/UL (140-415); RED BLOOD COUNT 2.57 10^6/ul (4.70-6.10); RED CELL DISTRIBUTION WIDTH 18.8 % (11.5-14.5)
[2019-01-04 06:45] LABS: ANION GAP 11 (5-13); BLOOD UREA NITROGEN 51 mg/dl (7-20); CARBON DIOXIDE 27 mmol/L (21-31); CHLORIDE 95 mmol/L (97-110); CREATININE 5.37 mg/dl (0.61-1.24); GLUCOSE 90 mg/dl (70-220); PHOSPHORUS 3.9 mg/dl (2.5-4.9); POTASSIUM 4.7 mmol/L (3.5-5.1); SODIUM 133 mmol/L (135-144)
[2019-01-04] MEDS: LEVOTHYROXINE 75 MCG TAB PO (06:51)
[2019-01-04] MEDS: INSULIN ASPART [NOVOLOG] 3 ML PEN SC ×7 (07:35→21:54)
[2019-01-04] MEDS: LINAGLIPTIN 5 MG TABLET PO (07:46)
[2019-01-04] MEDS: AMIODARONE 200 MG TAB PO (08:23)
[2019-01-04] MEDS: FOLIC ACID 1 MG TAB PO (08:23)
[2019-01-04] MEDS: APIXABAN 5 MG TABLET PO ×2 (08:24→20:35)
[2019-01-04] MEDS: DOCUSATE SODIUM 100 MG CAP PO (08:24)
[2019-01-04] MEDS: CYANOCOBALAMIN 500 MCG TAB PO (08:24)
[2019-01-04] MEDS: CHOLECALCIFEROL 2,000 UNIT CAP PO (08:25)
[2019-01-04] MEDS: L ACIDOPHIL/B LACTIS/B LONGUM CAPSULE PO ×2 (08:25→20:35)
[2019-01-04] MEDS: MULTIVIT/CA CARB/B CMPLX/FA TAB PO (08:25)
[2019-01-04] MEDS: ZINC SULFATE 220 MG CAP PO (08:25)
[2019-01-04] MEDS: PYRIDOXINE 50 MG TAB PO (08:25)
[2019-01-04] MEDS: ISOSORBIDE MONONITRATE(SR)30 MG TAB PO (08:25)
[2019-01-04] MEDS: BALSAM PERU/CASTOR OIL 60 GM TUBE TOP ×2 (08:26→22:35)
[2019-01-04] MEDS: METOPROLOL (XL) 50 MG TAB PO ×2 (08:26→21:40)
[2019-01-04 13:31] LABS: HAAIG REFLEX REFLEX FILED
[2019-01-04 14:09] LABS: HEPATITIS B SURFACE ANTIGEN NEGATIVE (NEGATIVE)
[2019-01-04 14:27] LABS: HEPATITIS B CORE ANTIBODY NEGATIVE (NEGATIVE); HEPATITIS C VIRAL ANTIBODY NEGATIVE (NEGATIVE)
[2019-01-04] MEDS: ALBUMIN HUMAN 25% 100 ML IV (15:39)
[2019-01-04] MEDS: SEVELAMER CARBONATE 800 MG TABLET PO (17:43)
[2019-01-04] MEDS: EPOETIN ALFA-EPBX (ESRD) 10,000 UNIT/ML VIAL SC (17:48)
[2019-01-04] MEDS: CEFAZOLIN 1 GM/50 ML (PMX) 50 ML IVPB (20:26)
[2019-01-04] MEDS: ATORVASTATIN 20 MG TAB PO (20:35)
[2019-01-04] MEDS: SPECIAL NON-STANDARD MEDICATION (CHEMO) PO (20:38)
[2019-01-04] MEDS: INSULIN GLARGINE [LANTus] (100 UNITS/ML) SYG SC (21:48)
[2019-01-05] MEDS: ACCU-CHEK XX ×5 (02:06→20:53)
[2019-01-05] MEDS: ACETAMINOPHEN 325 MG TAB PO (02:08)
[2019-01-05] MEDS: LEVOTHYROXINE 75 MCG TAB PO (06:17)
[2019-01-05] MEDS: INSULIN ASPART [NOVOLOG] 3 ML PEN SC ×7 (07:35→20:52)
[2019-01-05] MEDS: LINAGLIPTIN 5 MG TABLET PO (08:24)
[2019-01-05] MEDS: PYRIDOXINE 50 MG TAB PO (08:26)
[2019-01-05] MEDS: CYANOCOBALAMIN 500 MCG TAB PO (08:26)
[2019-01-05] MEDS: DOCUSATE SODIUM 100 MG CAP PO (08:27)
[2019-01-05] MEDS: ZINC SULFATE 220 MG CAP PO (08:27)
[2019-01-05] MEDS: CHOLECALCIFEROL 2,000 UNIT CAP PO (08:27)
[2019-01-05] MEDS: MULTIVIT/CA CARB/B CMPLX/FA TAB PO (08:28)
[2019-01-05] MEDS: FOLIC ACID 1 MG TAB PO (08:28)
[2019-01-05] MEDS: L ACIDOPHIL/B LACTIS/B LONGUM CAPSULE PO ×2 (08:28→20:43)
[2019-01-05] MEDS: APIXABAN 5 MG TABLET PO ×2 (08:28→20:43)
[2019-01-05] MEDS: METOPROLOL (XL) 50 MG TAB PO ×2 (08:30→20:52)
[2019-01-05] MEDS: AMIODARONE 200 MG TAB PO (08:30)
[2019-01-05] MEDS: BALSAM PERU/CASTOR OIL 60 GM TUBE TOP ×2 (08:38→20:53)
[2019-01-05] MEDS: ISOSORBIDE MONONITRATE(SR)30 MG TAB PO (09:46)
[2019-01-05] MEDS: SEVELAMER CARBONATE 800 MG TABLET PO (17:16)
[2019-01-05] MEDS: CEFAZOLIN 1 GM/50 ML (PMX) 50 ML IVPB (20:42)
[2019-01-05] MEDS: ZOLPIDEM 5 MG TAB PO (20:44)
[2019-01-05] MEDS: ATORVASTATIN 20 MG TAB PO (20:44)
[2019-01-05] MEDS: SPECIAL NON-STANDARD MEDICATION (CHEMO) PO (20:50)
[2019-01-05] MEDS: INSULIN GLARGINE [LANTus] (100 UNITS/ML) SYG SC (20:51)
[2019-01-06] MEDS: ACCU-CHEK XX ×3 (02:00→11:30)
[2019-01-06] MEDS: LEVOTHYROXINE 75 MCG TAB PO (06:13)
[2019-01-06] MEDS: INSULIN ASPART [NOVOLOG] 3 ML PEN SC ×4 (07:35→12:10)
[2019-01-06] MEDS: DOCUSATE SODIUM 100 MG CAP PO (09:20)
[2019-01-06] MEDS: CYANOCOBALAMIN 500 MCG TAB PO (09:20)
[2019-01-06] MEDS: PYRIDOXINE 50 MG TAB PO (09:20)
[2019-01-06] MEDS: L ACIDOPHIL/B LACTIS/B LONGUM CAPSULE PO (09:20)
[2019-01-06] MEDS: CHOLECALCIFEROL 2,000 UNIT CAP PO (09:21)
[2019-01-06] MEDS: FOLIC ACID 1 MG TAB PO (09:21)
[2019-01-06] MEDS: METOPROLOL (XL) 50 MG TAB PO (09:21)
[2019-01-06] MEDS: ISOSORBIDE MONONITRATE(SR)30 MG TAB PO (09:21)
[2019-01-06] MEDS: ZINC SULFATE 220 MG CAP PO (09:21)
[2019-01-06] MEDS: AMIODARONE 200 MG TAB PO (09:21)
[2019-01-06] MEDS: MULTIVIT/CA CARB/B CMPLX/FA TAB PO (09:21)
[2019-01-06] MEDS: APIXABAN 5 MG TABLET PO (09:22)
[2019-01-06] MEDS: LINAGLIPTIN 5 MG TABLET PO (09:22)
[2019-01-06] MEDS: BALSAM PERU/CASTOR OIL 60 GM TUBE TOP (09:27)
[2019-01-06] MEDS: CEFAZOLIN 3 GM in SOD CHLORIDE 0.9% 100 ML IVPB (13:38)
== END 2019-01-06 15:20 | disposition home health service (06) | DRG 949 ==
LOC: VRC 16:16
PROVIDERS: Physical Medicine & Rehabilitation
PROC: 5A1D70Z Performance of Urinary Filtration, Intermittent, Less than 6 Hours Per Day (ICD-10-PCS; principal; 2018-12-25)
DX: T84.54XD Infection and inflammatory reaction due to internal left knee prosthesis, subsequent encounter (principal); N18.6 End stage renal disease; I12.0 Hypertensive chronic kidney disease with stage 5 chronic kidney disease or end stage renal disease; C94.6 Myelodysplastic disease, not elsewhere classified; I12.9 Hypertensive chronic kidney disease with stage 1 through stage 4 chronic kidney disease, or unspecified chronic kidney disease; E11.22 Type 2 diabetes mellitus with diabetic chronic kidney disease; N18.9 Chronic kidney disease, unspecified; I25.10 Atherosclerotic heart disease of native coronary artery without angina pectoris; Z99.2 Dependence on renal dialysis; L89.92 Pressure ulcer of unspecified site, stage 2; Z97.8 Presence of other specified devices; F06.31 Mood disorder due to known physiological condition with depressive features; D63.1 Anemia in chronic kidney disease
CPT/HCPCS: 71045; 80048; 80053; 81001; 82962; 84100; 85025; 86704; 86709; 86803; 87081; 87086; 87340; 90935; 97110; 97116; 97150; 97163; 97166; 97530; 97535; 97542